=== PATIENT | female | born 1985 | race Two or more races ===

== ENCOUNTER → 2016-09-02 | Outpatient (CLI) | payer OTHER | LOC: RAD 14:08 | PROVIDERS: ATTEND Orthopaedic Surgery | DX: M25.561 Pain in right knee (principal); M25.461 Effusion, right knee ==

== ENCOUNTER 2016-09-27 21:19 | Day surgery (SDC) | payer OTHER ==
[2016-09-27 21:58] LABS: ABSOLUTE BASOPHILS # (AUTO) 0.1 10^3/uL (0.0-0.2); ABSOLUTE EOSINOPHILS # (AUTO) 0.2 10^3/uL (0.0-0.6); ABSOLUTE LYMPHOCYTES (AUTO) 4.3 10^3/uL (0.5-4.7); ABSOLUTE NEUT (AUTO) 11.3 10^3/uL (1.7-8.2); BASOPHILS % (AUTO) 0.8 % (0-2); EOSINOPHILS % (AUTO) 1.4 % (0-6); LYMPHOCYTES % (AUTO) 25.5 % (13-45); MEAN CORPUSCULAR HEMOGLOBIN 31.6 pg (27.0-33.4); MEAN CORPUSCULAR HGB CONC 34.1 g/dL (32.0-36.0); MEAN CORPUSCULAR VOLUME 93 fl (80-97); MONOCYTES % (AUTO) 5.8 % (3-13); RED BLOOD COUNT 4.43 10^6/uL (3.72-5.28); RED CELL DISTRIBUTION WIDTH 13.6 % (11.5-14.0); SEGMENTED NEUTROPHILS % (AUTO) 66.5 % (42-78)
[2016-09-27 22:07] LABS: APPEARANCE,URINE CLEAR; BILIRUBIN,URINE NEGATIVE (NEGATIVE); GLUCOSE, URINE NEGATIVE (NEGATIVE); KETONES,URINE NEGATIVE (NEGATIVE); LEUKOCYTE ESTERASE,URINE NEGATIVE (NEGATIVE); NITRITE,URINE NEGATIVE (NEGATIVE); PROTEIN,URINE NEGATIVE (NEGATIVE); URINE SPECIFIC GRAVITY 1.015; UROBILINOGEN,URINE NEGATIVE mg/dL (<2.0)
[2016-09-27 22:49] LABS: ALANINE AMINOTRANSFERASE 25 U/L (9-52); ALKALINE PHOSPHATASE 89 U/L (38-126); ANION GAP 11 (5-19); ASPARTATE AMINO TRANSFERASE 21 U/L (14-36); BILIRUBIN,DIRECT 0.3 mg/dL (0.0-0.4); BILIRUBIN,TOTAL 0.6 mg/dL (0.2-1.3); BLOOD UREA NITROGEN 11 mg/dL (7-20); CALCIUM 9.7 mg/dL (8.4-10.2); CARBON DIOXIDE 25 mmol/L (22-30); CHLORIDE 106 mmol/L (98-107); CREATININE RESULT 0.82 mg/dL (0.52-1.25); GLUCOSE 90 mg/dL (75-110); LIPASE 35.4 U/L (23-300); POTASSIUM 4.4 mmol/L (3.6-5.0); SODIUM 142.2 mmol/L (137-145)
[2016-09-28] MEDS ORDERED: ONDANSETRON HCL INJ/PF 4 MG/2 ML SDV IV ONE (00:06)
[2016-09-28] MEDS ORDERED: FENTANYL CITRATE INJ/PF 100 MCG/2 ML AMPUL IV ONE (00:06)
--- NOTE | 2016-09-28 00:09 | ER Document Report ---
ED General - General Chief Complaint: Abdominal Pain Stated Complaint: STOMACH PAIN Notes: Patient is a 31-year-old female presents for complaint of right lower quadrant pain. Pain initially started periumbilically and then radiated around to the right lower quadrant. Patient's never had this pain before. She does have history of IBS for says this feels completely different. She's had some nausea. No vomiting. No diarrhea. No blood in her stool. No fevers. Pain started yesterday. She does have a previous history of cholecystectomy. She is currently sexually monogamous. She does not have concerns for sexually transmitted diseases. She's had no abnormal vaginal discharge or bleeding. No dysuria. TRAVEL OUTSIDE OF THE [place] IN LAST 30 DAYS: No - Related Data Allergies/Adverse Reactions: Coconut * [Coconut] Allergy (Verified 09/24/14 09:09) Hives morphine [Morphine] Adverse Reaction (Intermediate, Verified 09/24/14 09:09) NIGHTMARES; N/V Shellfish * [Shellfish] Adverse Reaction (Intermediate, Verified 09/24/14 09:09) BURNING SKIN SENSATION; RED SKIN SILK TAPE Allergy (Intermediate, Uncoded 09/24/14 09:09) Past Medical History - Social History Smoking Status: Unknown if Ever Smoked Frequency of alcohol use: None Drug Abuse: None Family History: Reviewed & Not Pertinent, CAD Patient has suicidal ideation: No Patient has homicidal ideation: No - Past Medical History Cardiac Medical History: 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 Denies: Hx Cerebrovascular Accident Renal/ Medical History: Denies: Hx Peritoneal Dialysis GI Medical History: Reports: Hx Gastroesophageal Reflux Disease. Denies: Hx Hepatitis, Hx Hiatal Hernia, Hx Ulcer Musculoskeltal Medical History: Denies Hx Arthritis Psychiatric Medical History: Denies: Hx Depression Infectious Medical History: Denies: Hx Hepatitis Past Surgical History: Reports: Hx Cholecystectomy, Hx Gynecologic Surgery, Hx Oral Surgery, Hx Orthopedic Surgery, Hx Tonsillectomy. Denies: Hx Open Heart Surgery, Hx Pacemaker - Immunizations Immunizations up to date: Yes Hx Diphtheria, Pertussis, Tetanus Vaccination: No Review of Systems - Review of Systems Notes: My Normal Review Basic REVIEW OF SYSTEMS: CONSTITUTIONAL : Denies fever, chills, or sweats. Denies recent illness. EENT: Denies eye, ear, throat, or mouth pain or symptoms. Denies nasal or sinus congestion. RESPIRATORY: Denies cough, cold, or chest congestion. Denies shortness of breath, difficulty breathing, or wheezing. GASTROINTESTINAL: Right lower quadrant abdominal pain. Denies nausea, vomiting , or diarrhea. Denies constipation. Last BM: GENITOURINARY: Denies difficulty urinating, painful urination, burning, frequency, or blood in urine. FEMALE GENITOURINARY: Denies vaginal bleeding, abnormal or irregular periods. MUSCULOSKELETAL: Denies neck or back pain or joint pain or swelling. SKIN: Denies rash or skin lesions. NEUROLOGICAL: Denies altered mental status or loss of consciousness. Denies headache. Denies weakness or paralysis or loss of use of either side. Denies problems with gait or speech. Denies sensory or motor loss. ALL OTHER SYSTEMS REVIEWED AND NEGATIVE. Physical Exam - Vital signs Vitals: Temp Pulse Resp BP Pulse Ox 98.5 F 108 H 18 146/84 H 99 09/27/16 21:36 09/27/16 21:36 09/27/16 21:36 09/27/16 21:36 09/27/16 21:36 - Notes Notes: General Appearance: Well nourished, alert, cooperative, no acute distress, mild obvious discomfort. Vitals: reviewed, See vital signs table. Head: no swelling or tenderness to the head Eyes: PERRL, EOMI, Conjuctiva clear Mouth: No decreasd moisture Lungs: No wheezing, No rales, No rhonci, No accessory muscle use, good air exchange bilaterally. Heart: Normal rate, Regular rythm, No murmur, no rub Abdomen: Normal BS, soft, No rigidity, moderate right lower quadrant abdominal tenderness to palpation, No guarding, no rebound, no abdominal masses, no organomegaly Extremities: strength 5/5 in all extremities, good pulses in all extremities, no swelling or tenderness in the extremities, no edema. Skin: warm, dry, appropriate color, no rash Neuro: speech clear, oriented x 3, normal affect, responds appropriately to questions. Course - Vital Signs Vital signs: Temp Pulse Resp BP Pulse Ox 98.5 F 108 H 18 146/84 H 99 09/27/16 21:36 09/27/16 21:36 09/27/16 21:36 09/27/16 21:36 09/27/16 21:36 - Laboratory Result Diagrams: 09/27/16 21:45 09/27/16 22:28 Laboratory results interpreted by me: 09/27/16 21:45 WBC 17.0 H Absolute Neutrophils 11.3 H - Transfer of Care Notes: 09/28/16 01:24 CT scan shows evidence of appendicitis which correlates with clinical exam. Patient will be admitted for further intervention treatment. I did discuss the case with the general surgeon on-call, Dr. Li, agrees with the patient. He requested the patient Zosyn and keep her nothing by mouth. I discussed the plan with the patient and she is agreeable to it. Dictation of this chart was performed using voice recognition software; therefore, there may be some unintended grammatical errors. Discharge - Discharge Clinical Impression: Appendicitis Qualifiers: Appendicitis type: acute appendicitis Acute appendicitis type: with localized peritonitis Qualified Code(s): K35.3 - Acute appendicitis with localized peritonitis Condition: Stable Disposition: ADMITTED INPATIENT Admitting Provider: Surgicalist Unit Admitted: OR
[2016-09-28] MEDS ORDERED: PIPERACILLIN/TAZOBACTAM 3.375 GM VIAL IV ONE (01:21)
[2016-09-28] MEDS ORDERED: NORMAL SALINE 1000 ML 1,000 ML IV ONE (01:25)
[2016-09-28] MEDS ORDERED: HYDROMORPHONE HCL INJ/PF 2 MG/ML AMPULE IV PRN (03:44)
--- NOTE | 2016-09-28 07:43 | HISTORY AND PHYSICAL E ---
History and Physical NAME: CURT RAYO : 1985 AGE: 31Y ADMITTED: 09/28/2016 ROOM: 205 CHIEF COMPLAINT: Abdominal pains. HISTORY OF PRESENT ILLNESS: This is a 31-year-old female complaining of vague abdominal pains 2 days ago. Yesterday, pains worsened and more localized in the right lower quadrant. She came to the emergency room last night where a CAT scan of the abdomen revealed early acute appendicitis. Her white count is up to 17,000. PAST HISTORY: 1. History of laparoscopic cholecystectomy. 2. Right foot bunionectomy. 3. Tonsillectomy. FAMILY HISTORY: Strong for diabetes mellitus mother's side. REVIEW OF SYSTEMS: Abdominal pains with nausea. Denies any diarrhea or constipation or dysuria. No cough. No chest pains. She has a history of migraine and occasionally takes ibuprofen. Rest of the systems unremarkable. ALLERGIES: MORPHINE. PHYSICAL EXAMINATION: GENERAL: Well-developed, obese 31-year-old female alert and oriented, complaining of right lower quadrant pains. NECK: Supple. No thyromegaly. LUNGS: Clear. HEART: Regular sinus rhythm. ABDOMEN: Soft with tenderness in the right lower quadrant with rebound. EXTREMITIES: No edema. IMPRESSION: Acute appendicitis. PLAN: Patient started on IV antibiotics for laparoscopic appendectomy today, possible open. DICTATING PHYSICIAN: SAHIL MONTANEZ M.D. [id number] PHY#: [id number] ID: [id number] JOB#: [id number] ACCT: [id number] cc:SAHIL MONTANEZ M.D. >
--- NOTE | 2016-09-28 08:00 | PDOC PROGRESS REPORT ---
Subjective Progress Note for:: 09/28/16 Subjective:: Right lower quadrant abdominal pain. Physical Exam Vital Signs: Temp Pulse Resp BP Pulse Ox 97.4 F 79 17 116/61 99 09/28/16 04:09 09/28/16 04:09 09/28/16 04:09 09/28/16 04:09 09/28/16 04:09 General appearance: PRESENT: no acute distress, cooperative Respiratory exam: PRESENT: clear to auscultation navin Cardiovascular exam: PRESENT: RRR GI/Abdominal exam: PRESENT: other - Soft, nondistended, obese, tenderness to palpation in the right lower quadrant with guarding Results Impressions: Abdomen/Pelvis CT 09/28/16 00:06 IMPRESSION: Early acute appendicitis. Assessment & Plan - Diagnosis (1) Appendicitis Qualifiers: Appendicitis type: acute appendicitis Acute appendicitis type: with localized peritonitis Qualified Code(s): K35.3 - Acute appendicitis with localized peritonitis Is this a current diagnosis for this admission?: YesPlan: Most likely appendicitis. Plan laparoscopic appendectomy possible open appendectomy. I have discussed with the patient the risk and benefits of the surgery including risk of infection, bleeding, adjacent structure injury, mistaken diagnosis and stump leak. Patient understands and agrees to proceed.
[2016-09-28] MEDS ORDERED: BUPIVACAINE HCL 0.25 % INJ/PF (2.5 MG/1 ML) 30 ML VIAL ONE ×2 (08:22→08:56)
[2016-09-28] MEDS ORDERED: IBUPROFEN INJ 800 MG/8 ML VIAL IV ONE (09:02)
[2016-09-28] MEDS ORDERED: HYDROMORPHONE HCL INJ/PF 2 MG/ML AMPULE ONE (09:02)
[2016-09-28] MEDS ORDERED: ACETAMINOPHEN 100 ML IV ONE (09:02)
[2016-09-28] MEDS ORDERED: PROPOFOL INJ 200 MG/20 ML VIAL IV ONE (09:02)
[2016-09-28] MEDS ORDERED: EPHEDRINE SULFATE INJ 50 MG/1 ML AMPULE ONE (09:02)
[2016-09-28] MEDS ORDERED: MIDAZOLAM 2 MG/2 ML INJ ONE (09:02)
[2016-09-28] MEDS ORDERED: PROMETHAZINE HCL INJ 25 MG/1 ML VIAL IV PRN (10:10)
[2016-09-28] MEDS ORDERED: ONDANSETRON HCL INJ/PF 4 MG/2 ML SDV IV PRN ×2 (10:10→11:01)
[2016-09-28] MEDS ORDERED: DIPHENHYDRAMINE HCL 50 MG/ML VIAL IV PRN (10:10)
[2016-09-28] MEDS: HYDROMORPHONE HCL INJ/PF 2 MG/ML AMPULE IV PRN ×2 (12:49→19:30)
[2016-09-28] MEDS ORDERED: METOCLOPRAMIDE HCL INJ/PF 10 MG/2 ML SDV ONE (14:39)
[2016-09-28] MEDS ORDERED: ROCURONIUM BROMIDE INJ 50 MG/5 ML VIAL IV ONE (14:39)
[2016-09-28] MEDS ORDERED: NEOSTIGMINE METHYLSULFATE 10 MG/10 ML VIAL ONE (14:39)
[2016-09-28] MEDS ORDERED: LIDOCAINE 2% INJ-PF (20 MG/ML) 10 ML AMPUL ONE (14:39)
[2016-09-28] MEDS ORDERED: SUCCINYLCHOLINE CHLORIDE INJ 200 MG/10 ML VIAL ONE (14:39)
[2016-09-28] MEDS ORDERED: ONDANSETRON HCL INJ/PF 4 MG/2 ML SDV ONE (14:39)
[2016-09-28] MEDS ORDERED: DEXAMETHASONE SOD PHOSPHATE INJ 4 MG/1 ML VIAL ONE (14:39)
[2016-09-28] MEDS ORDERED: GLYCOPYRROLATE INJ 0.4 MG/2 ML VIAL ONE (14:39)
--- NOTE | 2016-09-28 17:53 | PDOC PROGRESS REPORT ---
Subjective Progress Note for:: 09/28/16 Subjective:: Abdominal pain much improved from preoperative state. Physical Exam Vital Signs: Temp Pulse Resp BP Pulse Ox 98.0 F 85 18 122/68 96 09/28/16 16:50 09/28/16 16:50 09/28/16 16:50 09/28/16 16:50 09/28/16 16:50 Intake & Output 09/27/16 09/28/16 09/29/16 06:59 06:59 06:59 Intake Total 2200 Output Total 370 Balance 1830 Weight 129.2 kg General appearance: PRESENT: no acute distress, cooperative Respiratory exam: PRESENT: clear to auscultation navin Cardiovascular exam: PRESENT: RRR GI/Abdominal exam: PRESENT: other - Soft, nondistended, tenderness to palpation the right lower quadrant but much less then prior to her operation. Results Impressions: Abdomen/Pelvis CT 09/28/16 00:06 IMPRESSION: Early acute appendicitis. Assessment & Plan - Diagnosis (1) Appendicitis Qualifiers: Appendicitis type: acute appendicitis Acute appendicitis type: with localized peritonitis Qualified Code(s): K35.3 - Acute appendicitis with localized peritonitis Is this a current diagnosis for this admission?: YesPlan: Status post laparoscopic appendectomy. Patient looks good. We'll likely discharge patient home tomorrow.
--- NOTE | 2016-09-28 17:53 | Operative Report ---
Operative Report DATE OF SURGERY: 09/28/16 PREOPERATIVE DIAGNOSIS: Appendicitis POSTOPERATIVE DIAGNOSIS: Appendicitis OPERATION: Laparoscopic appendectomy SURGEON: GETACHEW HRE ANESTHESIA: GA TISSUE REMOVED OR ALTERED: Appendix COMPLICATIONS: None ESTIMATED BLOOD LOSS: minimal INTRAOPERATIVE FINDINGS: Tip of appendix appeared inflamed with thickened mesentery. PROCEDURE: Informed consent was obtained. Patient was brought to the operating room and placed on the operating room table in supine position. After satisfactory induction of general anesthesia patient's abdomen was prepped and draped in usual sterile fashion. A supraumbilical midline incision was made dissection carried out through the fascia and the peritoneal cavity was entered. Ervin trocar was placed and pneumoperitoneum produced with good patient toleration. 5 mm trocar was placed in the right lateral abdomen lateral to the rectus above the level of the umbilicus. Another 5 mm trocar was placed in the left lateral abdomen lateral to the rectus below the level of the umbilicus. The patient was placed in a Trendelenburg position with the right side up. The appendix was visualized the tip appeared inflamed with thickened mesentery consistent with early appendicitis. A plane was created between the appendix and the mesoappendix at the base of the appendix. The appendix was taken using an Endo AKASH stapling device flush with the cecum. The stump closure appeared secure. The mesoappendix was taken using a vascular load of the Endo AKSAH stapling device. There was a bleeding at the staple line requiring surgical clip placement to control the bleeding. The operative field was irrigated and irrigant aspirated out. Irrigation fluid was perfectly clear at the end of the case. Hemostasis appeared excellent at the end of the case. The appendix was placed in an Endobag and removed through the Ervin trocar site fascial defect. All trochars were removed under the direct vision of the laparoscope to ensure hemostasis. The Ervin trocar site fascial defect was closed with interrupted Vicryl sutures. Marcaine was injected at the operative sites. All skin incisions were closed with interrupted subcuticular Monocryl sutures. Patient tolerated procedure well with no apparent complications and was taken to the recovery area in stable condition.
[2016-09-28] MEDS: PIPERACILLIN SODIUM/TAZOBACTAM 3.375 GM in NORMAL SALINE 100 ML IV SCH (18:27)
[2016-09-28] MEDS: NORMAL SALINE 1000 ML 1,000 ML IV PRN (18:31)
[2016-09-29] MEDS: PIPERACILLIN SODIUM/TAZOBACTAM 3.375 GM in NORMAL SALINE 100 ML IV SCH ×2 (02:33→09:38)
[2016-09-29] MEDS: NORMAL SALINE 1000 ML 1,000 ML IV PRN (02:34)
[2016-09-29] MEDS: OXYCODONE-ACETAMINOPHEN 5-325 MG TABLET PO PRN ×2 (02:34→08:08)
[2016-09-29 13:16] VITALS: BP 112/61
--- NOTE | 2016-09-29 14:13 | DISCHARGE SUMMARY E ---
Discharge Summary NAME: CURT RAYO : 1985 AGE: 31Y ADMITTED: 09/28/2016 DISCHARGED: 09/29/2016 FINAL DIAGNOSIS: Acute appendicitis. PROCEDURE PERFORMED: Laparoscopic appendectomy by Dr. Zhou, 09/28/16. SUMMARY: This is a 31-year-old female who was admitted for acute appendicitis. Laparoscopic appendectomy was done by Dr. Zhou on the day of admission, 09/28/16. Today, 09/29/16, the patient is able to tolerate a soft diet and the pains are controlled by Percocet. She is advised to continue regular diet and avoid any heavy lifting more than 15 pounds for the next 2 weeks and may resume regular activity in 3 weeks. Follow up with Dr. Zhou in the Surgical [facility] in a week or two. A prescription for Percocet was given to the patient. She may shower starting today if she wants to. All the incisions look good. DICTATING PHYSICIAN: SAHIL MONTANEZ M.D. [id number] PHY#: [id number] ID: [id number] JOB#: [id number] ACCT: [id number] cc:SAHIL MONTANEZ M.D. >
== END 2016-09-29 13:35 | disposition home or self-care (01) ==
LOC: ER 21:19 → UNDOADMIN 09-28 01:32 → EH 09-28 01:32 → 2N 09-28 03:02 → OROUT 09-28 03:25 → EH 09-28 03:25 → 2N 09-28 03:25 → UNDOADMIN 09-28 03:25 → UNDODISIN 09-29 13:35 → OROUT 09-29 13:35
PROVIDERS: ATTEND Surgery
PROC: 0DTJ4ZZ Resection of Appendix, Percutaneous Endoscopic Approach (ICD-10-PCS; principal; 2016-09-28 09:00)
DX: K35.3 Acute appendicitis with localized peritonitis (principal); F17.210 Nicotine dependence, cigarettes, uncomplicated; E66.9 Obesity, unspecified; Z88.5 Allergy status to narcotic agent; Z68.42 Body mass index [BMI] 45.0-49.9, adult; Z79.899 Other long term (current) drug therapy
CPT/HCPCS: 99285; 96374; 96375; 36415; 83690; 85025; 81025; 80053; 81001; 88304 ×2; 74176; 44970; J2250; J3490 ×3; J1100; J3010; J2765; J1170; J0330; J2405; J7030 ×2; J2704; J2543 ×2; J0131; J1741; 840

== ENCOUNTER 2017-03-22 18:35 | Emergency (ER) | payer OTHER ==
--- NOTE | 2017-03-22 20:13 | ER Document Report ---
ED General - General Chief Complaint: Shortness Of Breath Stated Complaint: SHORTNESS OF BREATH Time Seen by Provider: 03/22/17 19:12 TRAVEL OUTSIDE OF THE [place] IN LAST 30 DAYS: No - HPI Patient complains to provider of: Shortness of breath chest wall pain Notes: Patient coming in for shortness of breath chest wall pain. Patient states hard to take a deep breath and due to pain substernal goes underneath her ribs bilaterally. Denies any fevers chills productive cough nausea vomiting. Denies any recent travel patient denies any hormone replacement control patient states stop smoking approximately 1 month ago. Patient denies distress upon my evaluation states hurts when she bends over as well. States multiple sick contacts with upper respiratory-like symptoms cough runny nose. - Related Data Allergies/Adverse Reactions: Coconut * [Coconut] Allergy (Verified 03/22/17 18:53) Hives morphine [Morphine] Adverse Reaction (Intermediate, Verified 03/22/17 18:53) NIGHTMARES; N/V Shellfish * [Shellfish] Adverse Reaction (Intermediate, Verified 03/22/17 18:53) BURNING SKIN SENSATION; RED SKIN SILK TAPE Allergy (Intermediate, Uncoded 09/28/16 03:32) Past Medical History - Social History Smoking Status: Former Smoker Chew tobacco use (# tins/day): No Frequency of alcohol use: None Drug Abuse: None Family History: Reviewed & Not Pertinent, CAD - Past Medical History Cardiac Medical History: 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 Denies: Hx Cerebrovascular Accident Renal/ Medical History: Denies: Hx Peritoneal Dialysis GI Medical History: Reports: Hx Gastroesophageal Reflux Disease. Denies: Hx Hepatitis, Hx Hiatal Hernia, Hx Ulcer Musculoskeltal Medical History: Denies Hx Arthritis Psychiatric Medical History: Denies: Hx Depression Infectious Medical History: Denies: Hx Hepatitis Past Surgical History: Reports: Hx Cholecystectomy, Hx Gynecologic Surgery, Hx Oral Surgery, Hx Orthopedic Surgery, Hx Tonsillectomy. Denies: Hx Open Heart Surgery, Hx Pacemaker - Immunizations Immunizations up to date: Yes Hx Diphtheria, Pertussis, Tetanus Vaccination: No Review of Systems - Review of Systems Constitutional: No symptoms reported EENT: No symptoms reported Cardiovascular: Chest pain - Chest wall pain Respiratory: Short of breath Gastrointestinal: No symptoms reported Genitourinary: No symptoms reported Female Genitourinary: No symptoms reported Musculoskeletal: No symptoms reported Skin: No symptoms reported Hematologic/Lymphatic: No symptoms reported Neurological/Psychological: No symptoms reported -: Yes All other systems reviewed and negative Physical Exam - Vital signs Vitals: Temp Pulse Resp BP Pulse Ox 98.8 F 100 18 142/88 H 97 03/22/17 18:52 03/22/17 18:52 03/22/17 18:52 03/22/17 18:52 03/22/17 18:52 Interpretation: Normal - General General appearance: Appears well, Alert - HEENT Head: Normocephalic, Atraumatic Eyes: Normal Pupils: PERRL - Respiratory Respiratory status: No respiratory distress Chest status: Tender - Palpation to the substernal region in the lower part of the chest wall reproduces patient's symptoms. Breath sounds: Normal Chest palpation: Normal - Cardiovascular Rhythm: Regular Heart sounds: Normal auscultation Murmur: No - Abdominal Inspection: Normal Distension: No distension Bowel sounds: Normal Tenderness: Nontender Organomegaly: No organomegaly - Back Back: Normal, Nontender - Extremities General upper extremity: Normal inspection, Nontender, Normal color, Normal ROM , Normal temperature General lower extremity: Normal inspection, Nontender, Normal color, Normal ROM , Normal temperature, Normal weight bearing. No: Pravin's sign - Neurological Neuro grossly intact: Yes Cognition: Normal Orientation: AAOx4 [place] Coma Scale Eye Opening: Spontaneous [place] Coma Scale Verbal: Oriented [place] Coma Scale Motor: Obeys Commands [place] Coma Scale Total: 15 Speech: Normal Motor strength normal: LUE, RUE, LLE, RLE Sensory: Normal - Psychological Associated symptoms: Normal affect, Normal mood - Skin Skin Temperature: Warm Skin Moisture: Dry Skin Color: Normal Course - Re-evaluation Re-evalutation: 03/22/17 20:08 Call lab at this time states blood has been received and collected 03/22/17 20:34 Lab work still pending at this time. More likely chest wall pain. Lab work negative more likely will discharge home with anti-inflammatory medication - Vital Signs Vital signs: Temp Pulse Resp BP Pulse Ox 98.8 F 73 20 134/86 H 100 03/22/17 20:50 03/22/17 20:50 03/22/17 20:50 03/22/17 20:50 03/22/17 20:50 - Laboratory Result Diagrams: 03/22/17 19:53 03/22/17 19:53 Laboratory results interpreted by me: 03/22/17 03/22/17 19:53 19:53 WBC 11.9 H Creatine Kinase 188 H Discharge - Discharge Clinical Impression: Costochondritis Condition: Good Instructions: Anti-Inflammatory Medication ([facility]), Chest Wall Pain ([facility]) Additional Instructions: Take medications as prescribed. Return to ER symptoms worsen. Please avoid smoking. May take Tylenol as well Prescriptions: Ketorolac Tromethamine [Toradol 10 mg Tablet] 10 mg PO Q8HP PRN #30 tablet PRN Reason: Prednisone [Deltasone 20 mg Tablet] 2 tab PO DAILY 5 Days tablet Forms: Return to Work
[2017-03-22 20:19] LABS: ABSOLUTE BASOPHILS # (AUTO) 0.1 10^3/uL (0.0-0.2); ABSOLUTE EOSINOPHILS # (AUTO) 0.3 10^3/uL (0.0-0.6); ABSOLUTE MONOCYTES (AUTO) 0.9 10^3/uL (0.1-1.4); ABSOLUTE NEUT (AUTO) 6.6 10^3/uL (1.7-8.2); BASOPHILS % (AUTO) 0.5 % (0-2); EOSINOPHILS % (AUTO) 2.2 % (0-6); HEMATOCRIT 41.5 % (36.0-47.0); HEMOGLOBIN 14.3 g/dL (12.0-15.5); HGB HCT DIFFERENCE 1.4; LYMPHOCYTES % (AUTO) 33.9 % (13-45); MEAN CORPUSCULAR HEMOGLOBIN 32.1 pg (27.0-33.4); MEAN CORPUSCULAR HGB CONC 34.4 g/dL (32.0-36.0); MEAN CORPUSCULAR VOLUME 93 fl (80-97); MONOCYTES % (AUTO) 7.9 % (3-13); RED BLOOD COUNT 4.44 10^6/uL (3.72-5.28); RED CELL DISTRIBUTION WIDTH 13.4 % (11.5-14.0); SEGMENTED NEUTROPHILS % (AUTO) 55.5 % (42-78); WHITE BLOOD COUNT 11.9 10^3/uL (4.0-10.5)
--- NOTE | 2017-03-22 20:22 | EKG REPORT ---
SEVERITY:- NORMAL ECG - SINUS RHYTHM : Confirmed by: Monica Le MD 22-Mar-2017 20:22:25
--- NOTE | 2017-03-22 20:26 | RADIOLOGY REPORT (SQ) ---
EXAM DESCRIPTION: CHEST PA/LAT COMPLETED DATE/TIME: 03/22/2017 8:07 pm REASON FOR STUDY: cp COMPARISON: 03/04/2016. EXAM PARAMETERS: NUMBER OF VIEWS: two views TECHNIQUE: Digital Frontal and Lateral radiographic views of the chest acquired. RADIATION DOSE: NA LIMITATIONS: none FINDINGS: LUNGS AND PLEURA: No opacities, masses or pneumothorax. No pleural effusion. MEDIASTINUM AND HILAR STRUCTURES: No masses or contour abnormalities. HEART AND VASCULAR STRUCTURES: Heart normal size. No evidence for failure. BONES: No acute findings. HARDWARE: None in the chest. OTHER: No other significant finding. IMPRESSION: NO SIGNIFICANT RADIOGRAPHIC FINDING IN THE CHEST. TECHNICAL DOCUMENTATION: JOB ID: [id number] [employer]- All Rights Reserved
[2017-03-22 20:39] LABS: ALANINE AMINOTRANSFERASE 34 U/L (9-52); ALBUMIN 4.2 g/dL (3.5-5.0); ALKALINE PHOSPHATASE 90 U/L (38-126); ANION GAP 12 (5-19); ASPARTATE AMINO TRANSFERASE 27 U/L (14-36); BILIRUBIN,DIRECT 0.3 mg/dL (0.0-0.4); BILIRUBIN,TOTAL 0.4 mg/dL (0.2-1.3); BLOOD UREA NITROGEN 12 mg/dL (7-20); CALCIUM 9.6 mg/dL (8.4-10.2); CARBON DIOXIDE 25 mmol/L (22-30); CHLORIDE 104 mmol/L (98-107); CREATINE KINASE 188 U/L (30-135); GLUCOSE 86 mg/dL (75-110); POTASSIUM 4.9 mmol/L (3.6-5.0); SODIUM 141.1 mmol/L (137-145)
[2017-03-22 20:51] LABS: CREATINE KINASE MB 0.57 ng/mL (<4.55)
[2017-03-22 20:52] LABS: TROPONIN I < 0.012 ng/mL
[2017-03-22 20:55] VITALS: BP 134/86
[2017-03-22] MEDS ORDERED: KETOROLAC TROMETHAMINE 10 MG TABLET PO ONE (20:56)
== END 2017-03-22 21:17 | disposition home or self-care (01) ==
LOC: ER 18:35
DX: M94.0 Chondrocostal junction syndrome [Tietze] (principal); R06.02 Shortness of breath; I10 Essential (primary) hypertension; Z88.6 Allergy status to analgesic agent; Z91.013 Allergy to seafood; Z87.891 Personal history of nicotine dependence; Z90.49 Acquired absence of other specified parts of digestive tract
CPT/HCPCS: 93005; 99285; 36415; 82553; 82550; 85025; 80053; 84484; 71020; 93010; J3490

== ENCOUNTER 2017-07-18 10:10 | Emergency (ER) | payer OTHER ==
[2017-07-18 10:19] VITALS: BP 148/97
[2017-07-18] MEDS ORDERED: LIDOCAINE 2% VISCOUS SOLN 20 ML UDCUP PO ONE (10:47)
[2017-07-18] MEDS ORDERED: CIPROFLOXACIN-HC OTIC SUSP 10 ML AS ONE (10:47)
--- NOTE | 2017-07-18 10:54 | ER Document Report ---
ED ENT - General Chief Complaint: Ear Pain Stated Complaint: EAR PAIN Time Seen by Provider: 07/18/17 10:32 Mode of Arrival: Ambulatory Information source: Patient Notes: 31-year-old female presents to ED for complaint of left ear pain with drainage since Sunday. States she woke up Sunday with ear pain to the left ear Sunday it was worse with a headache to state the headache was more and she started having some yellow drainage with blood. Today she states there is more pain and blood. Examining patient there is a cut to the outer ear canal as of something has been placed in her ear. Patient denies putting anything in her ear. TRAVEL OUTSIDE OF THE [place] IN LAST 30 DAYS: No - HPI Patient complains to provider of: Ear problem, Other - Headache Onset: Other - Sunday Onset/Duration: Gradual, Worse Quality of pain: Sharp Severity: Moderate Pain Level: 4 Location of pain: Ears - Left Associated symptoms: Ear pain - Left, Ear drainage - Yellow and blood Similar symptoms previously: No Recently seen / treated by doctor: No - Related Data Allergies/Adverse Reactions: Coconut * [Coconut] Allergy (Verified 07/18/17 10:11) Hives morphine [Morphine] Adverse Reaction (Intermediate, Verified 07/18/17 10:11) NIGHTMARES; N/V Shellfish * [Shellfish] Adverse Reaction (Intermediate, Verified 07/18/17 10:11) BURNING SKIN SENSATION; RED SKIN SILK TAPE Allergy (Intermediate, Uncoded 09/28/16 03:32) Past Medical History - General Information source: Patient - Social History Smoking Status: Current Every Day Smoker Cigarette use (# per day): Yes - 3 cigarettes a day Chew tobacco use (# tins/day): No Smoking Education Provided: Yes - 4 minutes Frequency of alcohol use: None Drug Abuse: None Occupation: [employer] Lives with: Spouse/Significant other Family History: Arthritis, CAD, DM, Hyperlipidemia, Hypertension, Thyroid Disfunction. denies: COPD, CVA, Malignancy Patient has suicidal ideation: No Patient has homicidal ideation: No - Past Medical History Cardiac Medical History: Reports: Hx Hypercholesterolemia, Hx Hypertension - intra cranial Pulmonary Medical History: Reports: None EENT Medical History: Reports: None Neurological Medical History: Reports: Hx Seizures Endocrine Medical History: Reports: None Renal/ Medical History: Reports: None Malignancy Medical History: Reports: None GI Medical History: Reports: Hx Gastroesophageal Reflux Disease Musculoskeltal Medical History: Reports Hx Musculoskeletal Deformity Skin Medical History: Reports None Psychiatric Medical History: Reports: None Traumatic Medical History: Reports: None Infectious Medical History: Reports: None Past Surgical History: Reports: Hx Adenoidectomy, Hx Cholecystectomy, Hx Gynecologic Surgery, Hx Oral Surgery - [place] teeth, Hx Orthopedic Surgery - Bunion to foot and nerve removal, Hx Tonsillectomy - Immunizations Immunizations up to date: Yes Hx Diphtheria, Pertussis, Tetanus Vaccination: No Review of Systems - Review of Systems Constitutional: No symptoms reported EENT: Ear pain - Left ear pain drainage of yellow and blood, Ear discharge Cardiovascular: No symptoms reported Respiratory: No symptoms reported Gastrointestinal: No symptoms reported Genitourinary: No symptoms reported Female Genitourinary: No symptoms reported Musculoskeletal: No symptoms reported Skin: No symptoms reported Hematologic/Lymphatic: No symptoms reported Neurological/Psychological: No symptoms reported -: Yes All other systems reviewed and negative Physical Exam - Vital signs Vitals: Temp Pulse Resp BP Pulse Ox 98.7 F 101 H 16 148/97 H 97 07/18/17 10:18 07/18/17 10:18 07/18/17 10:18 07/18/17 10:18 07/18/17 10:18 Interpretation: Normal - General General appearance: Appears well, Alert - HEENT Head: Normocephalic, Atraumatic Eyes: Normal Pupils: PERRL Ears: Normal External canal: Other - Scratch to the outer canal with blood minimal drainage minimal wax Tympanic membrane: Normal Sinus: Normal Nasal: Normal Mouth/Lips: Normal Mucous membranes: Normal Pharynx: Normal Neck: Normal - Respiratory Respiratory status: No respiratory distress Chest status: Nontender Breath sounds: Normal Chest palpation: Normal - Cardiovascular Rhythm: Regular Heart sounds: Normal auscultation Murmur: No - Abdominal Inspection: Normal Distension: No distension Bowel sounds: Normal Tenderness: Nontender Organomegaly: No organomegaly - Back Back: Normal, Nontender - Extremities General upper extremity: Normal inspection, Nontender, Normal color, Normal ROM , Normal temperature General lower extremity: Normal inspection, Nontender, Normal color, Normal ROM , Normal temperature, Normal weight bearing. No: Pravin's sign - Neurological Neuro grossly intact: Yes Cognition: Normal Orientation: AAOx4 Sk[place] Coma Scale Eye Opening: Spontaneous [place] Coma Scale Verbal: Oriented Golden Coma Scale Motor: Obeys Commands Skyler Coma Scale Total: 15 Speech: Normal Motor strength normal: LUE, RUE, LLE, RLE Sensory: Normal - Psychological Associated symptoms: Normal affect, Normal mood - Skin Skin Temperature: Warm Skin Moisture: Dry Skin Color: Normal Course - Re-evaluation Re-evalutation: 07/18/17 10:[address] Mayer for the blood in the ear after I cannot see any damage to the tympanic membrane. He states he cannot see anything but the cut on the outer canal also. Will treat with Cipro otic eardrops and viscous lidocaine into the ear for the pain and to prevent infection. Will discharge patient home to follow-up with her primary doctor. Patient was given instructions on discharge and how she is to treat herself and to follow-up with a primary doctor. Asked patient any other questions or concerns and she stated no. - Vital Signs Vital signs: Temp Pulse Resp BP Pulse Ox 98.7 F 101 H 16 148/97 H 97 07/18/17 10:18 07/18/17 10:18 07/18/17 10:18 07/18/17 10:18 07/18/17 10:18 Discharge - Discharge Clinical Impression: Laceration to the outer canal of the ear Otitis externa Qualifiers: Otitis externa type: unspecified type Chronicity: acute Laterality: left Qualified Code(s): H60.502 - Unspecified acute noninfective otitis externa, left ear Condition: Stable Disposition: HOME, SELF-CARE Instructions: Family Physicians / Practices Additional Instructions: OTITIS EXTERNA: You have otitis externa -- an infection of the outer ear canal. This can be very painful. It's sometimes called "swimmer's ear," because it often occurs after prolonged water exposure. Many things, such as earwax and dirt in the ear, can contribute to it. The usual treatment is antibiotic/antiinflammatory ear drops. Occasionally , a wick will be placed in the ear to draw in the medicine. If the infection is severe, an oral antibiotic may be prescribed. Pain medication is often needed. Avoid getting water in the ear. Outer ear infections often take longer to heal than you might expect. Some tenderness and ache in the ear may persist for about two weeks. See your physician if you fail to improve as expected. Call the doctor at once if you develop fever, increasing swelling (particularly if it makes your ear "poke out"), severe headache, stiff neck, or decreased hearing. USE OF EAR DROPS: Your ear drops won't do much good if they don't get all the way in. To help the ear drops penetrate all the way to the ear drum, use the following technique. If you encounter problems of any kind, notify the physician. (1) Lay your head sideways on a pillow. (2) Place the dropper tip just barely inside the ear canal, almost touching the bottom side of the canal. The liquid is tolerated better on the bottom of the canal. (3) Squeeze out the appropriate amount of medicine, and remove the dropper. (4) Grab the back of the ear (just behind the ear canal) between your index finger and thumb. (5) Tug up, then let the ear drop back. Repeat several times. This pumps the medicine down. (6) Wait five minutes, then place a cotton ball in the ear canal to catch and hold the medicine. CIPROFLOXACIN: You have been given an antibacterial agent, ciprofloxacin (Cipro). This medicine is not related to the penicillins, sulfas, cephalosporins, or tetracyclines. It is often given to patients who are allergic to these drugs. It has been chosen for you either because other drugs are not appropriate, or because of the nature of your problem. Cipro should not be taken with antacids, as these can decrease its effectiveness. It can be taken without regard to meals. CIPRO SHOULD NOT BE TAKEN BY CHILDREN, NURSING WOMEN, OR WOMEN. Although Cipro is usually well-tolerated, common side effects can include nausea and diarrhea. Contact your doctor if you experience any unusual symptoms while on this medication, such as joint pain or swelling, shortness of breath, wheezing, faintness, or hives. USE OF ACETAMINOPHEN (Tylenol): Acetaminophen may be taken for pain relief or fever control. It's much safer than aspirin, offering a wider range of "safe" dosages. It is safe during . Some brand names are Tylenol, Panadol, Datril, Anacin 3, Tempra, and Liquiprin. Acetaminophen can be repeated every four hours. The following are maximum recommended dosages: WEIGHT Dose Drops Elixir Chewable( 80mg) (LBS.) drprs=droppers tsp=teaspoon 6 40 mg 0.4 ml (1/2) 6-11 80 mg 0.8 ml (full) tsp 1 tab 12-16 120 mg 1 1/2 drprs 3/4 tsp 1 1/2 tabs 17-23 160 mg 2 drprs 1 tsp 2 tabs 24-30 240 mg 3 drprs 1 1/2 tsp 3 tabs 30-35 320 mg 2 tsp 4 tabs 36-41 360 mg 2 1/4 tsp 4 1/2 tabs 42-47 400 mg 2 1/2 tsp 5 tabs 48-53 480 mg 3 tsp 6 tabs 54-59 520 mg 3 1/4 tsp 6 1/2 tabs 60-64 560 mg 3 1/2 tsp 7 tabs 65-70 600 mg 3 3/4 tsp 7 1/2 tabs 71-76 640 mg 4 tsp 8 tabs 77-82 720 mg 4 1/2 tsp 9 tabs 83-88 800 mg 5 tsp 10 tabs >89 pounds or adults 650 mg to 900 mg Acetaminophen can be repeated every four hours. Maximum dose not to exceed 4000 mg a day. These maximum recommended dosages are slightly higher than the dosages written on the product container, but these dosages are very safe and below the toxic dosage for acetaminophen. FOLLOW-UP CARE: If you have been referred to a physician for follow-up care, call the physician s office for an appointment as you were instructed or within the next two days. If you experience worsening or a significant change in your symptoms, notify the physician immediately or return to the Emergency Department at any time for re-evaluation. Prescriptions: Ciprofloxacin HCl/Hc [Cipro HC Otic Suspension] 4 drop LFT_EAR BID #1 bottle Forms: Elevated Blood Pressure, Smoking Cessation Education, Return to Work Referrals: [facility] [Provider Group] - Follow up as needed
== END 2017-07-18 11:00 | disposition home or self-care (01) ==
LOC: ER 10:10
DX: S01.312A Laceration without foreign body of left ear, initial encounter (principal); H60.502 Unspecified acute noninfective otitis externa, left ear; X58.XXXA Exposure to other specified factors, initial encounter; F17.210 Nicotine dependence, cigarettes, uncomplicated; E78.00 Pure hypercholesterolemia, unspecified; I10 Essential (primary) hypertension; Z90.49 Acquired absence of other specified parts of digestive tract; Z88.6 Allergy status to analgesic agent; Z91.013 Allergy to seafood
CPT/HCPCS: 99282; J3490 ×2

== ENCOUNTER 2017-08-17 08:52 | Emergency (ER) | payer OTHER ==
--- NOTE | 2017-08-17 09:33 | ER Document Report ---
ED Respiratory Problem - General Chief Complaint: Cough Stated Complaint: COUGH Time Seen by Provider: 08/17/17 09:30 Mode of Arrival: Ambulatory Information source: Patient Notes: 32 yo female c/o cough, n/v and congestion x3 days. Post tussive cough today. Has fever, bodyaches. No chest pain or shortness of breath. TRAVEL OUTSIDE OF THE [place] IN LAST 30 DAYS: No - Related Data Allergies/Adverse Reactions: Coconut * [Coconut] Allergy (Verified 08/17/17 08:52) Hives morphine [Morphine] Adverse Reaction (Intermediate, Verified 08/17/17 08:52) NIGHTMARES; N/V Shellfish * [Shellfish] Adverse Reaction (Intermediate, Verified 08/17/17 08:52) BURNING SKIN SENSATION; RED SKIN SILK TAPE Allergy (Intermediate, Uncoded 08/17/17 08:52) Past Medical History - General Information source: Patient - Social History Smoking Status: Never Smoker Frequency of alcohol use: None Drug Abuse: None Lives with: Family Family History: Arthritis, CAD, DM, Hyperlipidemia, Hypertension, Thyroid Disfunction - Past Medical History Cardiac Medical History: Reports: Hx Hypercholesterolemia, Hx Hypertension - intra cranial Neurological Medical History: Reports: Hx Seizures Renal/ Medical History: Denies: Hx Peritoneal Dialysis GI Medical History: Reports: Hx Gastroesophageal Reflux Disease Musculoskeltal Medical History: Reports Hx Musculoskeletal Deformity Past Surgical History: Reports: Hx Adenoidectomy, Hx Cholecystectomy, Hx Gynecologic Surgery, Hx Oral Surgery - [place] teeth, Hx Orthopedic Surgery - Bunion to foot and nerve removal, Hx Tonsillectomy - Immunizations Immunizations up to date: Yes Hx Diphtheria, Pertussis, Tetanus Vaccination: No Review of Systems - Review of Systems Constitutional: See HPI EENT: See HPI Cardiovascular: No symptoms reported Respiratory: See HPI Gastrointestinal: No symptoms reported Genitourinary: No symptoms reported Female Genitourinary: No symptoms reported Musculoskeletal: No symptoms reported Skin: No symptoms reported Hematologic/Lymphatic: No symptoms reported Neurological/Psychological: No symptoms reported Physical Exam - Vital signs Vitals: Temp Pulse Resp BP Pulse Ox 101.5 F H 129 H 20 142/96 H 98 08/17/17 08:55 08/17/17 08:55 08/17/17 08:55 08/17/17 08:55 08/17/17 08:55 Interpretation: Tachycardic, Febrile - General General appearance: Alert In distress: None - HEENT Head: Normocephalic, Atraumatic Eyes: Normal Conjunctiva: Normal Pupils: PERRL Mucous membranes: Dry Pharynx: Erythema - mild Neck: Supple. No: Lymphadenopathy - Respiratory Respiratory status: No respiratory distress Chest status: Nontender Breath sounds: Normal Chest palpation: Normal - Cardiovascular Rhythm: Regular Heart sounds: Normal auscultation Murmur: No - Abdominal Inspection: Normal Distension: No distension Bowel sounds: Normal Tenderness: Nontender. No: Tender Organomegaly: No organomegaly. No: Hepatomegaly, Splenomegaly - Back Back: Normal, Nontender. No: CVA tenderness - Extremities General upper extremity: Normal inspection, Nontender, Normal color, Normal ROM , Normal temperature General lower extremity: Normal inspection, Nontender, Normal color, Normal ROM , Normal temperature, Normal weight bearing. No: Pravin's sign - Neurological Neuro grossly intact: Yes Cognition: Normal Orientation: AAOx4 Skyler Coma Scale Eye Opening: Spontaneous [place] Coma Scale Verbal: Oriented [place] Coma Scale Motor: Obeys Commands [place] Coma Scale Total: 15 Speech: Normal Motor strength normal: LUE, RUE, LLE, RLE Sensory: Normal - Psychological Associated symptoms: Normal affect, Normal mood - Skin Skin Temperature: Warm Skin Moisture: Dry Skin Color: Normal Skin irregularity: negative: Rash Course - Re-evaluation Re-evalutation: 08/17/17 12:00 chest xray is negative, labs are normal, pt feels better. Vital signs are stable at this time. 08/17/17 12:09 - Vital Signs Vital signs: Temp Pulse Resp BP Pulse Ox 99.3 F 129 H 18 108/64 98 08/17/17 12:00 08/17/17 08:55 08/17/17 12:01 08/17/17 12:01 08/17/17 12:01 - Laboratory Result Diagrams: 08/17/17 09:38 08/17/17 09:38 Laboratory results interpreted by me: 08/17/17 08/17/17 09:38 10:51 Lymphocytes % 12.6 L Monocytes % 13.5 H Urine Blood LARGE H Discharge - Discharge Clinical Impression: cough, Influenza-like illness, fever Condition: Good Disposition: HOME, SELF-CARE Instructions: Acetaminophen, Use of [id number]-[id number] Ibuprofen ([facility]), Influenza ([facility]) 4801-3438, Inhaled Bronchodilators ([facility]) Additional Instructions: Plenty of fluids Rest Use the metered-dose inhaler for the cough and mucus Return to the emergency room if symptoms worsen. Prescriptions: Albuterol Sulfate [Proair HFA Inhalation Aerosol 8.5 gm MDI] 2 puff IH Q3HP PRN #1 [email or web address] PRN Reason: Forms: Return to Work
[2017-08-17] MEDS ORDERED: NORMAL SALINE 1000 ML 2,000 ML IV ONE (09:38)
[2017-08-17] MEDS ORDERED: ONDANSETRON 4 MG TAB.RAPDIS PO ONE (09:54)
[2017-08-17 10:06] LABS: ABSOLUTE EOSINOPHILS # (AUTO) 0.1 10^3/uL (0.0-0.6); ABSOLUTE LYMPHOCYTES (AUTO) 0.8 10^3/uL (0.5-4.7); ABSOLUTE MONOCYTES (AUTO) 0.9 10^3/uL (0.1-1.4); ABSOLUTE NEUT (AUTO) 4.6 10^3/uL (1.7-8.2); BASOPHILS % (AUTO) 0.6 % (0-2); EOSINOPHILS % (AUTO) 2.2 % (0-6); HEMATOCRIT 40.1 % (36.0-47.0); HEMOGLOBIN 13.7 g/dL (12.0-15.5); LYMPHOCYTES % (AUTO) 12.6 % (13-45); MEAN CORPUSCULAR HEMOGLOBIN 31.7 pg (27.0-33.4); MEAN CORPUSCULAR HGB CONC 34.1 g/dL (32.0-36.0); MEAN CORPUSCULAR VOLUME 93 fl (80-97); MONOCYTES % (AUTO) 13.5 % (3-13); PLATELET COUNT 262 10^3/uL (150-450); RED CELL DISTRIBUTION WIDTH 13.4 % (11.5-14.0); SEGMENTED NEUTROPHILS % (AUTO) 71.1 % (42-78); TOTAL CELLS COUNTED % (AUTO) 100 %; WHITE BLOOD COUNT 6.5 10^3/uL (4.0-10.5)
[2017-08-17 10:25] LABS: ALANINE AMINOTRANSFERASE 28 U/L (9-52); ALBUMIN 4.2 g/dL (3.5-5.0); ALKALINE PHOSPHATASE 83 U/L (38-126); ANION GAP 9 (5-19); ASPARTATE AMINO TRANSFERASE 28 U/L (14-36); BILIRUBIN,DIRECT 0.1 mg/dL (0.0-0.4); BILIRUBIN,TOTAL 0.2 mg/dL (0.2-1.3); BLOOD UREA NITROGEN 8 mg/dL (7-20); CALCIUM 9.3 mg/dL (8.4-10.2); CARBON DIOXIDE 25 mmol/L (22-30); CHLORIDE 104 mmol/L (98-107); GLUCOSE 92 mg/dL (75-110); POTASSIUM 3.8 mmol/L (3.6-5.0); SODIUM 137.6 mmol/L (137-145); TOTAL PROTEIN 6.9 g/dL (6.3-8.2)
[2017-08-17] MEDS ORDERED: ACETAMINOPHEN 325 MG TABLET PO ONE (10:44)
[2017-08-17 11:34] LABS: APPEARANCE,URINE CLEAR; BILIRUBIN,URINE NEGATIVE (NEGATIVE); COLOR,URINE YELLOW; GLUCOSE, URINE NEGATIVE (NEGATIVE); KETONES,URINE NEGATIVE (NEGATIVE); LEUKOCYTE ESTERASE,URINE NEGATIVE (NEGATIVE); NITRITE,URINE NEGATIVE (NEGATIVE); PROTEIN,URINE NEGATIVE (NEGATIVE); URINE SPECIFIC GRAVITY 1.008; UROBILINOGEN,URINE NEGATIVE mg/dL (<2.0)
--- NOTE | 2017-08-17 11:55 | RADIOLOGY REPORT (SQ) ---
EXAM DESCRIPTION: CHEST PA/LAT COMPLETED DATE/TIME: 08/17/2017 11:33 am REASON FOR STUDY: cough COMPARISON: 03/29/2017 EXAM PARAMETERS: NUMBER OF VIEWS: two views TECHNIQUE: Digital Frontal and Lateral radiographic views of the chest acquired. RADIATION DOSE: NA LIMITATIONS: none FINDINGS: LUNGS AND PLEURA: No opacities, masses or pneumothorax. No pleural effusion. MEDIASTINUM AND HILAR STRUCTURES: No masses or contour abnormalities. HEART AND VASCULAR STRUCTURES: Heart normal size. No evidence for failure. BONES: No acute findings. HARDWARE: None in the chest. OTHER: No other significant finding. IMPRESSION: NO SIGNIFICANT RADIOGRAPHIC FINDING IN THE CHEST. TECHNICAL DOCUMENTATION: JOB ID: [id number] [email or web address]- All Rights Reserved Reading location - IP/workstation name: [email or web address]
[2017-08-17 12:06] VITALS: BP 108/64
== END 2017-08-17 12:23 | disposition home or self-care (01) ==
LOC: ER 08:52
DX: J11.1 Influenza due to unidentified influenza virus with other respiratory manifestations (principal); R05 Cough; R11.2 Nausea with vomiting, unspecified; R09.81 Nasal congestion; R50.9 Fever, unspecified; M79.1 Myalgia; I10 Essential (primary) hypertension; R00.0 Tachycardia, unspecified
CPT/HCPCS: 99284; 96360; 36415; 87040; 87086; 85025; 80053; 81001; 71046; S0119; J7030

== ENCOUNTER 2017-09-06 22:57 | Emergency (ER) | payer SELFPAY ==
--- NOTE | 2017-09-07 00:52 | ER Document Report ---
ED General - General Chief Complaint: Numbness of Arm Stated Complaint: ARM NUMBNESS Time Seen by Provider: 09/07/17 00:34 Mode of Arrival: Ambulatory Information source: Patient Notes: 32-year-old female with history of hyperlipidemia, intracranial hypertension, seizures presents with complaint of right arm pain that started 8 hours prior to arrival. Patient states that she attempted to donate plasma earlier today. She states they attempted to draw her blood but were unsuccessful. She states they pushed saline into the IV and she developed a an area of swelling and "hardness". States shortly after that she began developing pain with extension of the right elbow and paresthesias in her fingers. She also states that she recently diagnosed herself with "tennis elbow" after her mother move many boxes. She has been wearing a brace over that area. She tried Flexeril and ibuprofen without relief. Denies any neck pain, shoulder pain, prior similar symptoms. She denies any history of DVT, PE. Currently she denies any fever, chills, chest pain, shortness of breath, abdominal pain, back pain. TRAVEL OUTSIDE OF THE [place] IN LAST 30 DAYS: No - HPI Onset: Yesterday Onset/Duration: Gradual Quality of pain: Achy, Burning Severity: Mild Associated symptoms: None Exacerbated by: Movement Relieved by: Remaining still Similar symptoms previously: No Recently seen / treated by doctor: No - Related Data Allergies/Adverse Reactions: Coconut * [Coconut] Allergy (Verified 09/07/17 01:12) Hives morphine [Morphine] Adverse Reaction (Intermediate, Verified 09/07/17 01:12) NIGHTMARES; N/V Shellfish * [Shellfish] Adverse Reaction (Intermediate, Verified 09/07/17 01:12) BURNING SKIN SENSATION; RED SKIN SILK TAPE Allergy (Intermediate, Uncoded 08/17/17 08:52) Past Medical History - General Information source: Patient, [facility] Records - Social History Smoking Status: Never Smoker Frequency of alcohol use: None Drug Abuse: None Lives with: Alone Family History: Arthritis, CAD, DM, Hyperlipidemia, Hypertension, Thyroid Disfunction Patient has suicidal ideation: No Patient has homicidal ideation: No - Past Medical History Cardiac Medical History: Reports: Hx Hypercholesterolemia, Hx Hypertension - intra cranial Denies: Hx Coronary Artery Disease, Hx Heart Attack Pulmonary Medical History: Denies: Hx Asthma, Hx Bronchitis, Hx COPD, Hx Pneumonia, Hx Tuberculosis Neurological Medical History: Reports: Hx Seizures. Denies: Hx Cerebrovascular Accident Renal/ Medical History: Denies: Hx Peritoneal Dialysis GI Medical History: Reports: Hx Gastroesophageal Reflux Disease. Denies: Hx Hepatitis, Hx Hiatal Hernia, Hx Ulcer Musculoskeltal Medical History: Denies Hx Arthritis, Reports Hx Musculoskeletal Deformity Psychiatric Medical History: Denies: Hx Depression Infectious Medical History: Denies: Hx Hepatitis Past Surgical History: Reports: Hx Adenoidectomy, Hx Cholecystectomy, Hx Gynecologic Surgery, Hx Oral Surgery - [place] teeth, Hx Orthopedic Surgery - Bunion to foot and nerve removal, Hx Tonsillectomy. Denies: Hx Open Heart Surgery, Hx Pacemaker - Immunizations Immunizations up to date: Yes Hx Diphtheria, Pertussis, Tetanus Vaccination: No Review of Systems - Review of Systems Notes: Denies any neck pain, shoulder pain, prior similar symptoms. She denies any history of DVT, PE. Currently she denies any fever, chills, chest pain, shortness of breath, abdominal pain, back pain. Physical Exam - Vital signs Vitals: Temp Pulse Resp BP Pulse Ox 98.1 F 100 20 147/84 H 98 09/06/17 23:02 09/06/17 23:02 09/06/17 23:02 09/06/17 23:02 09/06/17 23:02 - Notes Notes: PHYSICAL EXAMINATION: GENERAL: Well-appearing, well-nourished and in no acute distress. HEAD: Atraumatic, normocephalic. EYES: Pupils equal round and reactive to light, extraocular movements intact, conjunctiva are normal. ENT: Nares patent, oropharynx clear without exudates. Moist mucous membranes. NECK: Normal range of motion, supple without lymphadenopathy LUNGS: Breath sounds clear to auscultation bilaterally and equal. No wheezes rales or rhonchi. HEART: Regular rate and rhythm without murmurs ABDOMEN: Soft, nontender, nondistended abdomen. No guarding, no rebound. No masses appreciated. Female : deferred Musculoskeletal: Decreased range of motion right elbow, mild edema of the right hand. No cyanosis. Cap refill intact. No erythema. No neuro deficits of the right upper extremity. 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 NEUROLOGICAL: Cranial nerves grossly intact. Normal speech, normal gait. Normal sensory, motor exams PSYCH: Normal mood, normal affect. SKIN: Warm, Dry, normal turgor, no rashes or lesions noted. Course - Re-evaluation Re-evalutation: 09/07/17 00:52 32-year-old female with history of hyperlipidemia, intracranial hypertension, seizures presents with complaint of right arm pain that started 8 hours prior to arrival. Patient states that she attempted to donate plasma earlier today. She states they attempted to draw her blood but were unsuccessful. She states they pushed saline into the IV and she developed a an area of swelling and "hardness". States shortly after that she began developing pain with extension of the right elbow and paresthesias in her fingers. 09/07/17 07:16 She received Percocet, and an ice pack. On reevaluation she states pain has improved. She has full range of motion of right elbow. An Rick wrap was provided. She was advised to elevate the area. Patient was discharged home in improved condition. - Vital Signs Vital signs: Temp Pulse Resp BP Pulse Ox 97.5 F 86 16 139/87 H 98 09/07/17 01:38 09/07/17 01:38 09/07/17 01:38 09/07/17 01:38 09/07/17 01:38 Discharge - Discharge Clinical Impression: Edema of upper extremity, Paresthesia of right upper extremity Elbow strain Qualifiers: Encounter type: initial encounter Laterality: right Qualified Code(s): S56.911A - Strain of unspecified muscles, fascia and tendons at forearm level, right arm, initial encounter Condition: Good Disposition: HOME, SELF-CARE Instructions: Edema, Peripheral ([facility]), Elbow Effusion ([facility]) Additional Instructions: Please ice the area of discomfort. Maintain your Rick wrap for the next 3-5 days. Elevate your arm whenever possible. Please return if swelling worsens, you experience chest pain or shortness of breath. Please return if he developed redness around the puncture site. Prescriptions: Hydrocodone/Acetaminophen [[place] 5-325 mg Tablet] 1 tab PO Q6H #10 tablet Forms: Return to Work Referrals: ARABELLA SLAUGHTER MD [COMMUNITY BASED STAFF] - Follow up in 3-5 days
[2017-09-07] MEDS ORDERED: OXYCODONE-ACETAMINOPHEN 5-325 MG TABLET PO ONE (00:53)
[2017-09-07 01:45] VITALS: BP 139/87
== END 2017-09-07 01:50 | disposition home or self-care (01) ==
LOC: ER 22:57
DX: R20.2 Paresthesia of skin (principal); R60.0 Localized edema; G93.2 Benign intracranial hypertension; M79.601 Pain in right arm; Z98.890 Other specified postprocedural states; Z91.018 Allergy to other foods
CPT/HCPCS: 99284

== ENCOUNTER 2017-10-14 16:16 | Emergency (ER) | payer SELFPAY ==
[2017-10-14] MEDS ORDERED: CEPHALEXIN 500 MG CAPSULE PO ONE (17:17)
[2017-10-14] MEDS ORDERED: LIDOCAINE 1% INJ (10 MG/ML) 10 ML MDV INJ ONE (17:17)
[2017-10-14] MEDS ORDERED: SULFAMETHOXAZOLE/TRIMETHOPRIM 800-160 MG TABLET PO ONE (17:18)
--- NOTE | 2017-10-14 17:44 | ER Document Report ---
HPI - HPI Patient complains to provider of: paronychia Onset: Other - Sunday Quality of pain: Sharp, Throbbing Pain Level: 4 Associated Symptoms: Other - Paronychia Exacerbated by: Movement Relieved by: Denies Similar symptoms previously: No Recently seen / treated by doctor: Yes - ROS ROS below otherwise negative: Yes - CONSTITUTIONAL Constitutional: DENIES: Fever, Chills - EENT EENT: DENIES: Sore Throat, Ear Pain, Nasal Drainage-Clear, Nasal Drainage- Purulent, Congestion, Eye problems - NEURO Neurology: DENIES: Headache, Weakness, Vision blurred, Dizzinesss / Vertigo - CARDIOVASCULAR Cardiovascular: DENIES: Chest pain - RESPIRATORY Respiratory: DENIES: Trouble Breathing, Coughing - GASTROINTESTINAL Gastrointestinal: DENIES: Abdominal Pain, Nausea, Patient vomiting, Diarrhea, Constipation, Black / Bloody Stools - URINARY Urinary: DENIES: Dysuria, Urgency, Frequency - REPRODUCTIVE Reproductive: DENIES: :, Postmenopausal, Abnormal bleeding / discharge - MUSCULOSKELETAL Musculoskeletal: REPORTS: Extremity pain - Paronychia left middle finger - DERM Skin Color: Other - Swollen red paronychia left middle finger Skin Problems: None Past Medical History - General Information source: Patient - Social History Smoking Status: Current Every Day Smoker Cigarette use (# per day): Yes - One half pack per day Chew tobacco use (# tins/day): No Smoking Education Provided: Yes - 4 minutes Frequency of alcohol use: None Drug Abuse: None Occupation: [employer] Lives with: Spouse/Significant other Family History: Arthritis, CAD, DM, Hyperlipidemia, Hypertension, Thyroid Disfunction Patient has suicidal ideation: No Patient has homicidal ideation: No - Past Medical History Cardiac Medical History: Reports: Hx Hypercholesterolemia, Hx Hypertension - intra cranial Pulmonary Medical History: Reports: Hx Bronchitis EENT Medical History: Reports: None Neurological Medical History: Reports: Hx Seizures Endocrine Medical History: Reports: None Renal/ Medical History: Reports: None, Hx Pelvic Inflammatory Disease Malignancy Medical History: Reports: None GI Medical History: Reports: Hx Gastroesophageal Reflux Disease Musculoskeltal Medical History: Reports Hx Musculoskeletal Deformity Skin Medical History: Reports None Psychiatric Medical History: Reports: None Traumatic Medical History: Reports: None Past Surgical History: Reports: Hx Adenoidectomy, Hx Appendectomy, Hx Cholecystectomy, Hx Gynecologic Surgery - LEEP, Hx Oral Surgery - [place] teeth, Hx Orthopedic Surgery - Bunion to foot and nerve removal, Hx Tonsillectomy - Immunizations Immunizations up to date: Yes Hx Diphtheria, Pertussis, Tetanus Vaccination: No Vertical Provider Document - CONSTITUTIONAL Agree With Documented VS: Yes Exam Limitations: No Limitations General Appearance: WD/WN - INFECTION CONTROL TRAVEL OUTSIDE OF THE [place] IN LAST 30 DAYS: No - HEENT HEENT: Atraumatic, Normal ENT Exam, Normocephalic, PERRLA - NECK Neck: Normal Inspection, Supple, Thyroid Normal - RESPIRATORY Respiratory: Breath Sounds Normal, No Respiratory Distress, Chest Non-Tender - CARDIOVASCULAR Cardiovascular: Regular Rate, Regular Rhythm - MUSCULOSKELETAL/EXTREMETIES Musculoskeletal/Extremeties: MAEW, FROM, Tender - NEURO Level of Consciousness: Awake, Alert, Appropriate Motor/Sensory: No Motor Deficit, No Sensory Deficit - DERM Integumentary: Abscess - Paronychia Course - Vital Signs Vital signs: Temp Pulse Resp BP Pulse Ox 98.9 F 109 H 17 168/88 H 98 10/14/17 16:21 10/14/17 16:21 10/14/17 16:21 10/14/17 16:21 10/14/17 16:21 Procedures - Incision and Drainage Left Finger 3rd digit Time completed: 17:45 Type: Simple - paronychia Anesthetic type: 1% Lidocaine mL's of anesthetic: 3 Blade size: Other - 18 gauge needle I&D procedure: Shurclens applied Incision Method: Incision made with needle Amount/type of drainage: small amount purulent Discharge - Discharge Clinical Impression: Paronychia of left middle finger HTN (hypertension) Qualifiers: Hypertension type: unspecified Qualified Code(s): I10 - Essential (primary) hypertension Condition: Stable Disposition: HOME, SELF-CARE Instructions: Family Physicians / Practices Additional Instructions: Paronychia You have an infection between the nail and the surrounding skin, called a paronychia. The germs infect the area after a minor skin injury, such as a hangnail. This infection is treated by releasing the pus. This is usually done by the skin from the nail. If the infection has spread underneath the nail, partial removal of the nail may be necessary. Hot-soak the area three or four times daily. Antibiotics are often given, but are not always necessary. Healing takes about a week. If pain or swelling becomes severe or if you develop fever or chills, call the doctor or return for re-examination. POST INCISION AND DRAINAGE: You have had an incision made to allow drainage of an abscess. The incision must remain open so that pus and debris can drain from the wound. If the abscess cavity is large, packing is placed. This keeps the tissues from collapsing and trapping pus inside, while the body shrinks the cavity. The packing may need to be replaced every day or two. The physician will instruct you on the packing. Keep a bulky dressing over the area. Replace it if it becomes saturated with blood or pus. Do not disturb the packing (if present). You may shower and cleanse the area with gentle soap and warm water two or three times a day. Local warmth may be soothing, and may promote faster healing. Return if you develop high fever or chills, or if you note spreading redness, increasing swelling, or increasing tenderness. CEPHALEXIN: The antibiotic you've been prescribed is a member of the cephalosporin class. This type of antibiotic covers a wide variety of infections, including those of the skin, lungs, and urinary tract. It's useful for staph infections. This antibiotic is slightly similar to the penicillin family. In rare cases , a person who is allergic to penicillin will also be allergic to this medication. If you have had a severe allergic reaction to penicillin, and have not taken this antibiotic since that time, notify your doctor. Antibiotics which cover many germs ("broad spectrum" antibiotics) are more likely to cause diarrhea or "yeast" infections. Women prone to vaginal yeast problems may suffer an attack after taking this antibiotic. In infants, oral thrush (white spots "stuck" on the cheek) or yeast diaper rash may result. See your doctor if these problems occur. Call at once if you develop itching, hives , shortness of breath, or lightheadedness. TRIMETHOPRIM-SULFA: You have been given a prescription for trimethoprim-sulfa (TMS, Septra, Bactrim). This is a combination antibiotic of the sulfa class, often used for urinary tract infections, middle ear infections, bronchitis, shigella intestinal infection, and Pneumocystis pneumonia. TMS is usually well-tolerated. Occasional side effects include nausea and decreased appetite. Septra is not recommended for infants less than two months of age. Do not take this medication if you have experienced severe side effects or allergy to sulfa medicine. You should stop this medicine at once and contact your physician if you develop any rash, joint pain, shortness of breath, bruising, or jaundice ( yellow color in the skin), or if you develop any other new or unusual symptoms. Epsom Salt Soaks Soak the wound area in a container of warm epsom salt water. If you can't get the wound area into a bucket or rocha, use a folded towel soaked in the epsom salt solution and apply to the area. Use clean hot tap water (about the temperature of a very warm bath), mixing in about one (1) teaspoon for every pint of water. Two gallon --> 16 teaspoons Epsom Salts One gallon --> 8 teaspoons Epsom Salts Two quarts --> 4 teaspoons Epsom Salts One quart --> 2 teaspoons Epsom Salts Soak the wound for about 20 minutes while gently moving it around in the water. Repeat this four (4) times a day. FOLLOW-UP CARE: Most simple abscesses will not require a follow up visit. If you had packing placed in the abscess, remove it as instructed by the physician. If you have been referred to a physician for follow-up care, call the physicians office for an appointment as you were instructed or within the next two days. If you experience worsening or a significant change in your symptoms, return to the Emergency Department at any time for re-evaluation. Prescriptions: Cephalexin Monohydrate [Keflex 500 mg Capsule] 500 mg PO QID #20 capsule Sulfamethoxazole/Trimethoprim [Septra-Ds 800-160 mg Tablet] 1 tab PO BID #14 tablet Forms: Elevated Blood Pressure, Smoking Cessation Education, Return to Work
[2017-10-14 18:07] VITALS: BP 157/81
== END 2017-10-14 17:53 | disposition home or self-care (01) ==
LOC: ER 16:16
PROC: 0H9GXZZ Drainage of Left Hand Skin, External Approach (ICD-10-PCS; principal; 2017-10-14)
DX: L03.012 Cellulitis of left finger (principal); F17.210 Nicotine dependence, cigarettes, uncomplicated; E78.00 Pure hypercholesterolemia, unspecified; I10 Essential (primary) hypertension; Z90.49 Acquired absence of other specified parts of digestive tract
CPT/HCPCS: 87070; 87075; 87077; 87205; 99283; 99406

== ENCOUNTER 2018-04-13 20:09 | Emergency (ER) | payer SELFPAY ==
[2018-04-13 20:20] VITALS: BP 147/77
[2018-04-13 20:58] LABS: APPEARANCE,URINE SLIGHTLY-CLOUDY; BILIRUBIN,URINE NEGATIVE (NEGATIVE); COLOR,URINE YELLOW; GLUCOSE, URINE NEGATIVE (NEGATIVE); KETONES,URINE NEGATIVE (NEGATIVE); LEUKOCYTE ESTERASE,URINE NEGATIVE (NEGATIVE); NITRITE,URINE NEGATIVE (NEGATIVE); PROTEIN,URINE NEGATIVE (NEGATIVE); URINE SPECIFIC GRAVITY 1.023
[2018-04-13 21:18] LABS: ABSOLUTE BASOPHILS # (AUTO) 0.2 10^3/uL (0.0-0.2); ABSOLUTE EOSINOPHILS # (AUTO) 0.3 10^3/uL (0.0-0.6); ABSOLUTE LYMPHOCYTES (AUTO) 3.4 10^3/uL (0.5-4.7); ABSOLUTE MONOCYTES (AUTO) 0.7 10^3/uL (0.1-1.4); ABSOLUTE NEUT (AUTO) 6.1 10^3/uL (1.7-8.2); BASOPHILS % (AUTO) 1.8 % (0-2); EOSINOPHILS % (AUTO) 2.5 % (0-6); HEMATOCRIT 38.2 % (36.0-47.0); HEMOGLOBIN 12.8 g/dL (12.0-15.5); LYMPHOCYTES % (AUTO) 32.1 % (13-45); MEAN CORPUSCULAR HEMOGLOBIN 31.6 pg (27.0-33.4); MEAN CORPUSCULAR HGB CONC 33.5 g/dL (32.0-36.0); MEAN CORPUSCULAR VOLUME 94 fl (80-97); MONOCYTES % (AUTO) 6.8 % (3-13); PLATELET COUNT 252 10^3/uL (150-450); RED BLOOD COUNT 4.05 10^6/uL (3.72-5.28); RED CELL DISTRIBUTION WIDTH 13.5 % (11.5-14.0); SEGMENTED NEUTROPHILS % (AUTO) 56.8 % (42-78); TOTAL CELLS COUNTED % (AUTO) 100 %; WHITE BLOOD COUNT 10.7 10^3/uL (4.0-10.5)
[2018-04-13] MEDS ORDERED: PROMETHAZINE HCL 25 MG TABLET PO ONE (21:22)
[2018-04-13] MEDS ORDERED: HYDROCODONE/ACETAMINOPHEN 5-325 MG TABLET PO ONE (21:22)
--- NOTE | 2018-04-13 21:24 | ER Document Report ---
ED GI/ - General Chief Complaint: Abdominal Pain Stated Complaint: STOMACH PAIN/VOMITING Time Seen by Provider: 04/13/18 21:01 Notes: Patient is a 32-year-old female that comes to the emergency department for chief complaint of left-sided abdominal pain that started approximately 4 days ago, she states that intermittently the pain is sharp, she states that intermittently she has vomited for the past several days as well. She states she is getting a lot of heartburn. She states she vomited 3 times today. Normal bowel movements. No fever or chills. She states that when she sits up suddenly she will feel a sharp pain. She denies dysuria, vaginal discharge or bleeding, flank pain. She is sexually active with her significant other. Past medical history of appendectomy, cholecystectomy. She denies any daily medications although reports to me that she has been diagnosed with IBS. TRAVEL OUTSIDE OF THE [place] IN LAST 30 DAYS: No - Related Data Allergies/Adverse Reactions: Coconut * [Coconut] Allergy (Verified 04/13/18 20:34) Hives morphine [Morphine] Adverse Reaction (Intermediate, Verified 04/13/18 20:34) NIGHTMARES; N/V Shellfish * [Shellfish] Adverse Reaction (Intermediate, Verified 04/13/18 20:34) BURNING SKIN SENSATION; RED SKIN SILK TAPE Allergy (Intermediate, Uncoded 04/13/18 20:34) Past Medical History - General Information source: Patient - Social History Smoking Status: Former Smoker Frequency of alcohol use: None Drug Abuse: None Lives with: Family Family History: Arthritis, CAD, DM, Hyperlipidemia, Hypertension, Thyroid Disfunction Patient has suicidal ideation: No Patient has homicidal ideation: No - Past Medical History Cardiac Medical History: Reports: Hx Hypercholesterolemia, Hx Hypertension - intra cranial Denies: Hx Heart Attack Pulmonary Medical History: Reports: Hx Bronchitis Denies: Hx Asthma, Hx COPD, Hx Pneumonia, Hx Tuberculosis Neurological Medical History: Reports: Hx Seizures Renal/ Medical History: Reports: Hx Pelvic Inflammatory Disease. Denies: Hx Peritoneal Dialysis GI Medical History: Reports: Hx Gastroesophageal Reflux Disease. Denies: Hx Hiatal Hernia, Hx Ulcer Musculoskeletal Medical History: Denies Hx Arthritis, Reports Hx Musculoskeletal Deformity Psychiatric Medical History: Denies: Hx Depression Past Surgical History: Reports: Hx Adenoidectomy, Hx Appendectomy, Hx Cholecystectomy, Hx Gynecologic Surgery - LEEP, Hx Oral Surgery - [place] teeth, Hx Orthopedic Surgery - Bunion to foot and nerve removal, Hx Tonsillectomy. Denies: Hx Open Heart Surgery - Immunizations Immunizations up to date: Yes Hx Diphtheria, Pertussis, Tetanus Vaccination: No Review of Systems - Review of Systems Constitutional: No symptoms reported EENT: No symptoms reported Cardiovascular: No symptoms reported Respiratory: No symptoms reported Gastrointestinal: See HPI Genitourinary: No symptoms reported Female Genitourinary: No symptoms reported Musculoskeletal: No symptoms reported Skin: No symptoms reported Hematologic/Lymphatic: No symptoms reported Neurological/Psychological: No symptoms reported Physical Exam - Vital signs Vitals: Temp Pulse Resp BP Pulse Ox 98.5 F 92 20 147/77 H 99 04/13/18 20:19 04/13/18 20:19 04/13/18 20:19 04/13/18 20:19 04/13/18 20:19 - Notes Notes: GENERAL: Alert, interacts well. No acute distress. HEAD: Normocephalic, atraumatic. EYES: Pupils equal, round, and reactive to light. Extraocular movements intact. ENT: Oral mucosa moist, tongue midline. Oropharynx unremarkable. Airway patent. Nares patent, no nasal septal hematoma, TM's intact. NECK: Full range of motion. Supple. Trachea midline. LUNGS: Clear to auscultation bilaterally, no wheezes, rales, or rhonchi. No respiratory distress. HEART: Regular rate and rhythm. No murmur ABDOMEN: Tender in the left lower quadrant extending to the left pelvic area, mildly tender in the left upper quadrant, remaining abdomen is soft and benign. GENITOURINARY: Deferred EXTREMITIES: Moves all 4 extremities spontaneously. No edema, normal radial and dorsalis pedis pulses bilaterally. No cyanosis. BACK: no cervical, thoracic, lumbar midline tenderness. No saddle anesthesia, normal distal neurovascular exam. NEUROLOGICAL: Alert and oriented x3. Normal speech. [cranial nerves II through XII grossly intact]. PSYCH: Normal affect, normal mood. SKIN: Warm, dry, normal turgor. No rashes or lesions noted. Course - Re-evaluation Re-evalutation: Patient is well-appearing, she does have left lower quadrant pain extending to the left pelvis, she has mild left upper quadrant pain and heartburn. She has had a cholecystectomy and appendectomy. Her vital signs are unremarkable. Borderline leukocytosis with no shift, chemistry and urine are unremarkable. Recommended a pelvic examination but this was declined. Ultrasound shows right ovarian cyst, not left ovarian cyst for patient's pain is. No significant findings otherwise. Discussed with patient. By examination with palpation in her left lower quadrant she appears to have some developing colitis which has been present for the last several days although this is not definite. Could be pelvic infection or other etiology. I do have low suspicion of abscess, perforation, or acute surgical abnormality. I discussed at length with patient, after discussion decision was made to not perform CAT scan but she will be placed on Cipro and Flagyl for a short course for possible colitis based on her developing symptoms, persistent left lower quadrant pain. She reports good follow-up. Discussed medications, discussed return precautions in detail. Patient states understanding and agreement. - Vital Signs Vital signs: Temp Pulse Resp BP Pulse Ox 98.5 F 92 20 147/77 H 99 04/13/18 20:19 04/13/18 20:19 04/13/18 20:19 04/13/18 20:19 04/13/18 20:19 - Laboratory Result Diagrams: 04/13/18 21:05 04/13/18 21:05 Laboratory results interpreted by me: 04/13/18 04/13/18 20:42 21:05 WBC 10.7 H Urine Urobilinogen 4.0 H Discharge - Discharge Clinical Impression: LLQ pain Vomiting Qualifiers: Vomiting type: unspecified Vomiting Intractability: non-intractable Nausea presence: with nausea Qualified Code(s): R11.2 - Nausea with vomiting, unspecified Condition: Stable Disposition: HOME, SELF-CARE Additional Instructions: Your workup, symptoms, and evaluation are most suggestive of colitis today. We have begun treatment for this. I recommend clear fluid diet for 1-2 days followed by bland food and slowly progressing to normal diet. Because of your reflux I recommend the Carafate along with [id number] Pepcid. Take nausea medication if needed. 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 Return if you worsen including uncontrolled vomiting, severe pain, fever of 100.4 or greater, bloody bowel movements, or any other concerning or worsening symptoms. Prescriptions: Ciprofloxacin HCl [Cipro 500 mg Tablet] 500 mg PO BID #14 tablet Metronidazole [Flagyl 500 mg Tablet] 500 mg PO TID #21 tablet Promethazine HCl [Phenergan 25 mg Tablet] 25 mg PO Q6H PRN #20 tablet PRN Reason: Sucralfate [Carafate 1 gm Tablet] 1 gm PO QID #20 tablet
[2018-04-13 21:40] LABS: ALANINE AMINOTRANSFERASE 30 U/L (9-52); ALBUMIN 3.7 g/dL (3.5-5.0); ALKALINE PHOSPHATASE 59 U/L (38-126); ANION GAP 12 (5-19); ASPARTATE AMINO TRANSFERASE 23 U/L (14-36); BILIRUBIN,DIRECT 0.3 mg/dL (0.0-0.4); BILIRUBIN,TOTAL 0.3 mg/dL (0.2-1.3); BLOOD UREA NITROGEN 10 mg/dL (7-20); CALCIUM 9.2 mg/dL (8.4-10.2); CARBON DIOXIDE 25 mmol/L (22-30); CHLORIDE 105 mmol/L (98-107); GLUCOSE 89 mg/dL (75-110); LIPASE 57.7 U/L (23-300); POTASSIUM 4.2 mmol/L (3.6-5.0); SODIUM 141.7 mmol/L (137-145); TOTAL PROTEIN 6.3 g/dL (6.3-8.2)
--- NOTE | 2018-04-13 22:44 | RADIOLOGY REPORT (SQ) ---
US PELVIS HISTORY: Left pelvic pain. Nausea. COMPARISON: None. TECHNIQUE: Grayscale, color Doppler, and spectral Doppler ultrasound images of the pelvis were obtained. FINDINGS: The uterus is anteverted and measures 7.3 x 3.4 x 3.4 cm. The endometrium measures 7 mm in thickness. The right ovary measures 3.7 x 2.9 x 3.7 cm and contains a 3.5 x 2.3 x 2.4 cm cyst. The left ovary measures 2.9 x 1.8 x 2.0 cm. Both ovaries contain normal follicles. Normal color Doppler flow is seen in both ovaries. No free fluid is seen in the pelvis. IMPRESSION: 3.5 cm simple right ovarian cyst No follow-up imaging is recommended. Reference: Radiology 2010 Sep;256(3):943-54
[2018-04-13] MEDS ORDERED: METRONIDAZOLE 500 MG TABLET PO ONE (23:09)
[2018-04-13] MEDS ORDERED: CIPROFLOXACIN HCL 500 MG TABLET PO ONE (23:09)
[2018-04-13] MEDS ORDERED: SUCRALFATE 1 GM TABLET PO ONE (23:09)
== END 2018-04-14 00:11 | disposition home or self-care (01) ==
LOC: ER 20:09
DX: R11.2 Nausea with vomiting, unspecified (principal); R10.32 Left lower quadrant pain; R12 Heartburn; E78.00 Pure hypercholesterolemia, unspecified; I10 Essential (primary) hypertension; Z88.6 Allergy status to analgesic agent; Z91.013 Allergy to seafood; Z90.49 Acquired absence of other specified parts of digestive tract; Z87.891 Personal history of nicotine dependence
CPT/HCPCS: 36415; 76830; 80053; 81001; 81025; 83690; 85025; 93976; 99284

== ENCOUNTER 2018-06-15 10:00 | Emergency (ER) | payer SELFPAY ==
[2018-06-15] MEDS ORDERED: IPRATROPIUM/ALBUTEROL 0.5-2.5 MG/3 ML AMPUL NEB ONE (10:40)
[2018-06-15] MEDS ORDERED: PREDNISONE 20 MG TABLET PO ONE (10:40)
--- NOTE | 2018-06-15 11:23 | ER Document Report ---
HPI - HPI Time Seen by Provider: 06/15/18 10:31 Pain Level: 5 - CONSTITUTIONAL Constitutional: REPORTS: Chills. DENIES: Fever - EENT EENT: REPORTS: Sore Throat, Ear Pain - right - NEURO Neurology: REPORTS: Headache - RESPIRATORY Respiratory: REPORTS: Coughing - REPRODUCTIVE Reproductive: DENIES: : Past Medical History - Social History Smoking Status: Current Some Day Smoker Frequency of alcohol use: None Drug Abuse: None Family History: Arthritis, CAD, DM, Hyperlipidemia, Hypertension, Thyroid Disfunction Patient has suicidal ideation: No Patient has homicidal ideation: No - Past Medical History Cardiac Medical History: Reports: Hx Hypercholesterolemia, Hx Hypertension - intra cranial Denies: Hx Heart Attack Pulmonary Medical History: Reports: Hx Bronchitis Denies: Hx Asthma, Hx COPD, Hx Pneumonia, Hx Tuberculosis Neurological Medical History: Reports: Hx Seizures Renal/ Medical History: Reports: Hx Pelvic Inflammatory Disease. Denies: Hx Peritoneal Dialysis GI Medical History: Reports: Hx Gastroesophageal Reflux Disease. Denies: Hx Hiatal Hernia, Hx Ulcer Musculoskeletal Medical History: Denies Hx Arthritis, Reports Hx Musculoskeletal Deformity Psychiatric Medical History: Denies: Hx Depression Past Surgical History: Reports: Hx Adenoidectomy, Hx Appendectomy, Hx Cholecystectomy, Hx Gynecologic Surgery - LEEP, Hx Oral Surgery - [place] teeth, Hx Orthopedic Surgery - Bunion to foot and nerve removal, Hx Tonsillectomy. Denies: Hx Open Heart Surgery - Immunizations Immunizations up to date: Yes Hx Diphtheria, Pertussis, Tetanus Vaccination: No Vertical Provider Document - INFECTION CONTROL TRAVEL OUTSIDE OF THE [place] IN LAST 30 DAYS: No Course - Vital Signs Vital signs: Temp Pulse Resp BP Pulse Ox 98.7 F 112 H 20 140/102 H 98 06/15/18 10:24 06/15/18 10:24 06/15/18 10:24 06/15/18 10:24 06/15/18 10:24 Discharge - Discharge Clinical Impression: Viral upper respiratory illness Condition: Stable Disposition: HOME, SELF-CARE Additional Instructions: UPPER RESPIRATORY ILLNESS: You have a viral infection of the respiratory passages -- a "cold." This common infection causes nasal congestion, drainage, and often sore throat and cough. It is highly contagious. The disease usually lasts about 10 to 14 days. There is no "cure" for the viral infection -- it must run its course. If there is a complication, such as bacterial infection in the nose, sinuses, middle ear, or bronchial tubes, antibiotics may be required. The antibiotics won't affect the virus. Drink plenty of fluids. A humidifier may help. An expectorant medication or decongestant may make you more comfortable. Use acetaminophen or ibuprofen for fever or aches. See the doctor if fever persists over two days, if there is any significant worsening of your symptoms, or if you simply fail to improve as expected. BRONCHOSPASM: You have tightness in the bronchial tubes, called bronchospasm. This often occurs with bronchial infections. Allergies, inhaled chemicals, and polluted or cold air can also provoke bronchospasm. It's more likely in patients with asthma in the family. Emergency treatment of bronchospasm may include adrenaline shots or bronchodilator aerosol. You may feel lightheaded and have a rapid pulse for an hour or two. Rest and get plenty of fluids. At home, we'll treat you with a bronchodilator inhaler. Antibiotics and corticosteroids may be required for some patients. Until you recover, avoid chemical fumes, dusts, pollens, and exercising in very cold or dry air. If you smoke, stop now!! If you develop a fever, increased wheezing, chest pain, or severe shortness of breath, you should contact the doctor immediately. COUGH-SUPPRESSANT & EXPECTORANT MEDICATION: You are to use a cough medication as needed for relief of symptoms. This medicine is a combination of an expectorant (to make the mucous thinner and more easily "coughed up") and a cough suppressant (to reduce the frequency of coughing). The cough-suppressant medicine is related to narcotics. You may experience mild nausea and sleepiness. Some patients who are very sensitive to narcotics may have stomach pain from this medicine. Taking the medicine with food reduces these side effects. Do not drive or work with machinery until you know how this medicine affects you. The expectorant should have no side effects. Iodine-containing expectorants (such as organidin) should not be taken by persons with active thyroid disease unless approved by your doctor. Call the doctor if you develop shortness of breath, hives, rash, itching, lightheadedness, or severe nausea and vomiting. INHALED BRONCHODILATORS: You have received a treatment of and/or prescription for an inhaled bronchodilator -- a medication which stimulates the airways in the lung to dilate. This improves the flow of air in asthma, bronchitis, and emphysema. These medicines have some similarity to adrenaline, and can cause similar side effects: shakiness, racing heart, and a sense of nervousness. These side effects decrease with time. Contact your doctor if these side effects are severe. Do not over-use the medicine. Too-frequent use of the inhaler may make it ineffective. Call your doctor if the inhaler is not controlling your symptoms at the prescribed doses. STEROID MEDICATION: You have been given an injection of or oral medicine of the cortisone/steroid class. This medication is used to control inflammation or allergy. Beto t is usually only given for a short period of time, until the acute process subsides. There are usually no side effects from short-term use of cortisone-like medications. Some persons feel an increased sense of well-being and are not sleepy at bedtime. Long-term use of cortisone medications is best avoided, unless required for a severe condition. If your condition does not remit, or relapses after the course of corticosteroid medication, you should consult your physician. USE OF ACETAMINOPHEN (Tylenol): Acetaminophen may be taken for pain relief or fever control. It's much safer than aspirin, offering a wider range of "safe" dosages. It is safe during . Some brand names are Tylenol, Panadol, Datril, Anacin 3, Tempra, and Liquiprin. Acetaminophen can be repeated every four hours. The following are maximum recommended dosages: >89 pounds or adults 650 mg to 900 mg Acetaminophen can be repeated every four hours. Maximum dose not to exceed 4000 mg a day. SMOKING: If you smoke, you should stop smoking. The tar and chemicals in cigarette smoke are harmful. Smoking has been shown to cause: emphysema chronic bronchitis lung cancer mouth and throat cancer stomach and pancreas cancer premature aging defects In addition, smoking increases ear and lung infections in children of alf enriquez. FOLLOW-UP CARE: If you have been referred to a physician for follow-up care, call the physicians office for an appointment as you were instructed or within the next two days. If you experience worsening or a significant change in your symptoms, notify the physician immediately or return to the Emergency Department at any time for re-evaluation. Please take all medications as prescribed. Her symptoms are most likely being caused by a viral infection. If you smoke please quit smoking. Drink plenty of fluids. Take Tylenol or ibuprofen for any aches or pains. Do not take the codeine cough medication if you are going to be driving. Prescriptions: Codeine Phosphate/Guaifenesin [Codeine-Guaifen 10-100 mg/5 ml] 10 ml PO Q6HP PRN #120 ml PRN Reason: Benzonatate [Tessalon Perles 100 mg Capsule] 100 mg PO Q8HP PRN #40 capsule PRN Reason: Fluticasone Propionate [Flonase Nasal [place] 50 Mcg/[place] 16 gm] 2 sprays NASL Q12 #1 inhaler Prednisone [Deltasone 20 mg Tablet] 3 tab PO DAILY 4 Days #12 tablet Forms: Return to Work
[2018-06-15 11:27] VITALS: BP 149/86
== END 2018-06-15 11:45 | disposition home or self-care (01) ==
LOC: ER 10:00
DX: J06.9 Acute upper respiratory infection, unspecified (principal); B97.89 Other viral agents as the cause of diseases classified elsewhere; R51 Headache
CPT/HCPCS: 94640; 99283; 87070; 87880; J7512; J7620

== ENCOUNTER 2018-08-11 18:39 | Emergency (ER) | payer SELFPAY ==
--- NOTE | 2018-08-11 20:18 | ER Document Report ---
ED Medical Screen (RME) - General Chief Complaint: Laceration Stated Complaint: FINGER LACERATION Time Seen by Provider: 08/11/18 20:18 Mode of Arrival: Ambulatory Information source: Patient TRAVEL OUTSIDE OF THE [place] 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 Tet- UTD - Related Data Allergies/Adverse Reactions: Coconut * [Coconut] Allergy (Verified 06/15/18 10:02) Hives morphine [Morphine] Adverse Reaction (Intermediate, Verified 06/15/18 10:02) NIGHTMARES; N/V Shellfish * [Shellfish] Adverse Reaction (Intermediate, Verified 06/15/18 10:02) BURNING SKIN SENSATION; RED SKIN SILK TAPE Allergy (Intermediate, Uncoded 06/15/18 10:02) Past Medical History - Past Medical History Cardiac Medical History: Reports: Hx Hypercholesterolemia, Hx Hypertension - intra cranial Denies: Hx Heart Attack Pulmonary Medical History: Reports: Hx Bronchitis Denies: Hx Asthma, Hx COPD, Hx Pneumonia, Hx Tuberculosis Neurological Medical History: Reports: Hx Seizures Renal/ Medical History: Reports: Hx Pelvic Inflammatory Disease. Denies: Hx Peritoneal Dialysis GI Medical History: Reports: Hx Gastroesophageal Reflux Disease. Denies: Hx Hiatal Hernia, Hx Ulcer Musculoskeltal Medical History: Denies Hx Arthritis, Reports Hx Musculoskeletal Deformity Psychiatric Medical History: Denies: Hx Depression Past Surgical History: Reports: Hx Adenoidectomy, Hx Appendectomy, Hx Cholecystectomy, Hx Gynecologic Surgery - LEEP, Hx Oral Surgery - [place] teeth, Hx Orthopedic Surgery - Bunion to foot and nerve removal, Hx Tonsillectomy. Denies: Hx Open Heart Surgery - Immunizations Immunizations up to date: Yes Hx Diphtheria, Pertussis, Tetanus Vaccination: No Physical Exam - Vital signs Vitals: Temp Pulse Resp BP Pulse Ox 99.1 F 101 H 16 147/91 H 100 08/11/18 19:27 08/11/18 19:27 08/11/18 19:27 08/11/18 19:27 08/11/18 19:27 Course - Vital Signs Vital signs: Temp Pulse Resp BP Pulse Ox 99.1 F 101 H 16 147/91 H 100 08/11/18 19:27 08/11/18 19:27 08/11/18 19:27 08/11/18 19:27 08/11/18 19:27
[2018-08-11] MEDS ORDERED: LIDOCAINE 1% INJ-PF (10 MG/ML) 30 ML SDV INJ ONE (22:21)
[2018-08-11] MEDS ORDERED: HYDROCODONE/ACETAMINOPHEN 5-325 MG TABLET PO ONE (22:22)
--- NOTE | 2018-08-11 23:18 | ER Document Report ---
ED General - General Chief Complaint: Laceration Stated Complaint: FINGER LACERATION Time Seen by Provider: 08/11/18 20:18 Mode of Arrival: Ambulatory Notes: Patient is a 33-year-old female presents with complaints of a laceration to her finger. She says that she actually cut her finger. She cut her left second digit. She has had tetanus in the last 5 years. She denies any other complaints or injuries. TRAVEL OUTSIDE OF THE [place] IN LAST 30 DAYS: No - Related Data Allergies/Adverse Reactions: Coconut * [Coconut] Allergy (Verified 06/15/18 10:02) Hives morphine [Morphine] Adverse Reaction (Intermediate, Verified 06/15/18 10:02) NIGHTMARES; N/V Shellfish * [Shellfish] Adverse Reaction (Intermediate, Verified 06/15/18 10:02) BURNING SKIN SENSATION; RED SKIN SILK TAPE Allergy (Intermediate, Uncoded 06/15/18 10:02) Past Medical History - General Information source: Patient - Social History Smoking Status: Current Every Day Smoker Frequency of alcohol use: None Drug Abuse: None Family History: Arthritis, CAD, DM, Hyperlipidemia, Hypertension, Thyroid Disfunction Patient has suicidal ideation: No Patient has homicidal ideation: No - Past Medical History Cardiac Medical History: Reports: Hx Hypercholesterolemia, Hx Hypertension - intra cranial Denies: Hx Heart Attack Pulmonary Medical History: Reports: Hx Bronchitis Denies: Hx Asthma, Hx COPD, Hx Pneumonia, Hx Tuberculosis Neurological Medical History: Reports: Hx Seizures Renal/ Medical History: Reports: Hx Pelvic Inflammatory Disease. Denies: Hx Peritoneal Dialysis GI Medical History: Reports: Hx Gastroesophageal Reflux Disease. Denies: Hx Hiatal Hernia, Hx Ulcer Musculoskeletal Medical History: Denies Hx Arthritis, Reports Hx Musculoskeletal Deformity Psychiatric Medical History: Denies: Hx Depression Past Surgical History: Reports: Hx Adenoidectomy, Hx Appendectomy, Hx Cholecystectomy, Hx Gynecologic Surgery - LEEP, Hx Oral Surgery - [place] teeth, Hx Orthopedic Surgery - Bunion to foot and nerve removal, Hx Tonsillectomy. Denies: Hx Open Heart Surgery - Immunizations Immunizations up to date: Yes Hx Diphtheria, Pertussis, Tetanus Vaccination: No Review of Systems - Review of Systems Notes: My Normal Review Basic REVIEW OF SYSTEMS: CONSTITUTIONAL : Denies fever, chills, or sweats. Denies recent illness. MUSCULOSKELETAL: Laceration distal aspect of left second digit. No difficulty flexing or extending the finger. SKIN: Denies rash or skin lesions. HEMATOLOGIC : Denies easy bruising or bleeding. NEUROLOGICAL: Denies sensory or motor loss. ALL OTHER SYSTEMS REVIEWED AND NEGATIVE. Physical Exam - Vital signs Vitals: Temp Pulse Resp BP Pulse Ox 99.1 F 101 H 16 147/91 H 100 08/11/18 19:27 08/11/18 19:27 08/11/18 19:27 08/11/18 19:27 08/11/18 19:27 - Notes Notes: General Appearance: Well nourished, alert, cooperative, no acute distress, no obvious discomfort. Well-appearing. Vitals: reviewed, See vital signs table. Extremities: Good strength with flexion and extension of the left second digit. Patient has a small 1 cm U-shaped laceration is superficial over the lateral aspect of the distal phalanx of the left second digit. Skin: warm, dry, appropriate color, no rash Neuro: speech clear, oriented x 3, normal affect, responds appropriately to questions. Course - Re-evaluation Re-evalutation: 08/11/18 23:24 Laceration had 2 sutures placed. This gave good wound approximation. Prior to sutures being placed laceration was thoroughly irrigated and cleaned. Patient has full flexion-extension of the finger without any difficulty. Nose evidence tendon injury. Laceration is not deep enough to hit the tendon. Distal sensation intact. Patient discharged home encouraged to return to ER immediately if she is any redness or swelling to the finger. She is informed to have the sutures removed in 1 week. 08/12/18 05:31 Dictation of this chart was performed using voice recognition software; therefore, there may be some unintended grammatical errors. - Vital Signs Vital signs: Temp Pulse Resp BP Pulse Ox 99.4 F 95 18 149/85 H 99 08/11/18 23:59 08/11/18 23:59 08/11/18 23:59 08/11/18 23:59 08/11/18 23:59 Procedures - Laceration/Wound Repair Left 2nd digit Wound length (cm): 1 Wound's Depth, Shape: Irregular Anesthetic type: 1% Lidocaine Volume Anesthetic (mLs): 1 Irrigated w/ Saline (mLs): 30 Wound Repaired With: Sutures Suture Size/Type: 6:0, Ethilon Number of Sutures: 2 Post-procedure NV exam normal: No Complications: No Discharge - Discharge Clinical Impression: Laceration Condition: Good Disposition: HOME, SELF-CARE Additional Instructions: LACERATION CARE: Your laceration has been sutured to keep the skin edges aligned during healing. The time of suture removal depends on the nature and location of your cut. Please follow the care instructions the doctor has outlined for you and return for further care, according to the schedule you've been given. Keep the wound and dressing clean. Unless you were told otherwise, you may shower daily, blotting the wound dry with a clean, unused towel. At other times, If the dressing gets wet or blood soaked, remove it and blot the wound dry, then reapply a new dressing. Unless you were instructed otherwise, dressings should be changed at least daily. If any signs of infection occur (swelling, redness, drainage, increasing tenderness, red streaks, tender lumps in the armpit or groin above the laceration, or fever), see the doctor immediately. SOAP CLEANSING: Gently wash the wound daily using a mild soap (like Ivory, Phisoderm, Neutrogena). Use warm water, rubbing gently until all debris, ooze, and crusting have been washed from the wound. Allow to dry briefly (about 10 minutes) after cleaning. Repeat this cleansing at least three times a day for the first two days and then once or twice a day. FOLLOW-UP CARE: Your sutures should be removed in ___7__ days. To facilitate a timely removal of your sutures, you may return to the Emergency Department at [facility]. You do not need to call for an appointment, but the best time to come in for suture removal is early in the morning. If you have been referred to another physician for follow-up care, call that physicians office for an appointment as you were instructed. If you experience a significant change in your laceration, or if you are concerned there may be an infection (swelling, redness, drainage, increasing tenderness, red streaks, tender lumps in the armpit or groin above the laceration, or fever), return to the Emergency Department immediately re-evaluation. Please keep the cut covered when at work. You can use a nonstick bandage to cover it. Return to the ER immediately if there is any redness swelling or signs of infection.
[2018-08-12] VITALS: BP 149/85
== END 2018-08-12 | disposition home or self-care (01) ==
LOC: ER 18:39
DX: S61.211A Laceration without foreign body of left index finger without damage to nail, initial encounter (principal); W45.8XXA Other foreign body or object entering through skin, initial encounter; F17.200 Nicotine dependence, unspecified, uncomplicated; Z88.6 Allergy status to analgesic agent; Z91.013 Allergy to seafood; E78.00 Pure hypercholesterolemia, unspecified; I10 Essential (primary) hypertension; Z90.49 Acquired absence of other specified parts of digestive tract
CPT/HCPCS: 99282; 12001; J3490

== ENCOUNTER 2018-10-03 19:43 | Emergency (ER) | payer SELFPAY ==
--- NOTE | 2018-10-03 21:04 | RADIOLOGY REPORT (SQ) ---
EXAM DESCRIPTION: XR FOOT 3 OR MORE VIEWS COMPLETED DATE/TME: 10/03/2018 20:16 CLINICAL HISTORY: dropped brick on it COMPARISON: None FINDINGS: Three x-ray views of the left foot were submitted. There is no acute fracture or dislocation. Bone mineralization is within normal limits. There is no radiopaque foreign body material. There is an enthesophyte in the insertion of the Achilles tendon. IMPRESSION: No acute fracture or dislocation.
--- NOTE | 2018-10-03 21:39 | ER Document Report ---
ED Extremity Problem, Lower - General Chief Complaint: Foot Injury Stated Complaint: FOOT INJURY Time Seen by Provider: 10/03/18 21:18 TRAVEL OUTSIDE OF THE [place] IN LAST 30 DAYS: No - HPI Notes: Patient is a 33-year-old female that presents to the emergency department for chief complaint of left foot injury. Patient states 2 days ago she dropped a cinder block on her left foot. She is had increased pain and swelling over the top of her left foot since. She states the pain is sharp and located mostly over her fourth and fifth metatarsals and fourth and fifth toes. She has been taking ibuprofen and icing it at home which she states does give her relief of the pain. The pain is worse with movement or ambulation. Patient states she is concerned she may have broke her foot. Past Medical History: Reviewed in chart Past Surgical History: Negative Social History: Denies drugs alcohol and tobacco Family History: Reviewed and noncontributory for presenting illness Allergies: Reviewed, see documented allergy list. REVIEW OF SYSTEMS: CONSTITUTIONAL : No fever No chills No diaphoresis No recent illness EENT: No vision changes No congestion No sore throat CARDIOVASCULAR: No chest pain No palpitations RESPIRATORY: No shortness of breath No cough No difficulty breathing GASTROINTESTINAL: No abdominal pain No nausea No vomiting No diarrhea GENITOURINARY: No dysuria No hematuria No difficulty urinating MUSCULOSKELETAL: No back pain Left foot pain No arm pain SKIN: No rashes No lesions LYMPHATIC: No swollen, enlarged glands. NEUROLOGICAL: No lightheadedness No headache No weakness No paresthesias PSYCHIATRIC: No anxiety No depression PHYSICAL EXAMINATION: Vital signs reviewed, nursing noted reviewed. GENERAL: Well-appearing, well-nourished and in no acute distress. HEAD: Atraumatic, normocephalic. EYES: Eyes appear normal, extraocular movements intact, sclera anicteric, conjunctiva are normal. ENT: nares patent, oropharynx clear without exudates. Moist mucous membranes. NECK: Normal range of motion, supple without lymphadenopathy LUNGS: Breath sounds clear to auscultation bilaterally and equal. No wheezes rales or rhonchi. HEART: Regular rate and rhythm without murmurs ABDOMEN: Soft, nontender, normoactive bowel sounds. No rebound, guarding, or rigidity. No masses appreciated. EXTREMITIES: Tenderness to palpation of left fourth and fifth digit as well as distal fourth and fifth metatarsal with no deformity, mild overlying edema and ecchymosis, good range of motion, NEUROLOGICAL: No focal neurological deficits. Moves all extremities spontaneously Motor and sensory grossly intact on exam. PSYCH: Normal mood, normal affect. SKIN: Warm, Dry, normal turgor, no rashes or lesions noted on exposed skin - Related Data Allergies/Adverse Reactions: Coconut * [Coconut] Allergy (Verified 06/15/18 10:02) Hives morphine [Morphine] Adverse Reaction (Intermediate, Verified 06/15/18 10:02) NIGHTMARES; N/V Shellfish * [Shellfish] Adverse Reaction (Intermediate, Verified 06/15/18 10:02) BURNING SKIN SENSATION; RED SKIN SILK TAPE Allergy (Intermediate, Uncoded 06/15/18 10:02) Past Medical History - Social History Smoking Status: Unknown if Ever Smoked Family History: Arthritis, CAD, DM, Hyperlipidemia, Hypertension, Thyroid Disfunction Patient has suicidal ideation: No Patient has homicidal ideation: No - Past Medical History Cardiac Medical History: Reports: Hx Hypercholesterolemia, Hx Hypertension - intra cranial Denies: Hx Heart Attack Pulmonary Medical History: Reports: Hx Bronchitis Denies: Hx Asthma, Hx COPD, Hx Pneumonia, Hx Tuberculosis Neurological Medical History: Reports: Hx Seizures Renal/ Medical History: Reports: Hx Pelvic Inflammatory Disease. Denies: Hx Peritoneal Dialysis GI Medical History: Reports: Hx Gastroesophageal Reflux Disease. Denies: Hx Hiatal Hernia, Hx Ulcer Musculoskeletal Medical History: Denies Hx Arthritis, Reports Hx Musculoskeletal Deformity Psychiatric Medical History: Denies: Hx Depression Past Surgical History: Reports: Hx Adenoidectomy, Hx Appendectomy, Hx Cholecystectomy, Hx Gynecologic Surgery - LEEP, Hx Oral Surgery - [place] teeth, Hx Orthopedic Surgery - Bunion to foot and nerve removal, Hx Tonsillectomy. Denies: Hx Open Heart Surgery - Immunizations Immunizations up to date: Yes Hx Diphtheria, Pertussis, Tetanus Vaccination: No Physical Exam - Vital signs Vitals: Temp Pulse Resp BP Pulse Ox 98.4 F 95 22 H 147/95 H 100 10/03/18 19:48 10/03/18 19:48 10/03/18 19:48 10/03/18 19:48 10/03/18 19:48 Course - Re-evaluation Re-evalutation: 10/03/18 21:37 Vitals reviewed. Nursing notes reviewed. Patient has edema and tenderness to her dorsal left foot. X-ray shows no acute fracture. Her symptoms are consistent with contusion. She was offered crutches and Motrin in the ER but declined. Patient will be given a note for work. She was counseled on ice, elevation and rest. She will follow with her PCP for reevaluation in 1 to 2 weeks as needed. Foot X-Ray 10/03/18 20:16 IMPRESSION: No acute fracture or dislocation. - Vital Signs Vital signs: Temp Pulse Resp BP Pulse Ox 98.4 F 95 22 H 147/95 H 100 10/03/18 19:48 10/03/18 19:48 10/03/18 19:48 10/03/18 19:48 10/03/18 19:48 Discharge - Discharge Clinical Impression: Contusion of left foot Qualifiers: Encounter type: initial encounter Qualified Code(s): S90.32XA - Contusion of left foot, initial encounter Condition: Stable Disposition: HOME, SELF-CARE Instructions: Contusion ([facility]) Additional Instructions: Please return to the emergency department if you have any worsening, or concern of your symptoms. Please return to the emergency department if you develop chest pain, difficulty breathing, severe abdominal pain, or ongoing vomiting. Please follow-up with your primary care physician in 2-3 days and any other recommended physicians. If prescribed, take all medications as directed. If you have any questions or concerns do not hesitate to return the emergency department for evaluation. Keep your left leg elevated as often as possible. Apply ice to the affected area 2-3 times daily for 20 minutes at a time Take Tylenol and ibuprofen as needed for pain Forms: Elevated Blood Pressure, Return to Work Referrals: [facility] [Provider Group] - Follow up as needed
[2018-10-03 22:23] VITALS: BP 128/76
== END 2018-10-03 22:23 | disposition home or self-care (01) ==
LOC: ER 19:43
DX: S90.32XA Contusion of left foot, initial encounter (principal); W20.8XXA Other cause of strike by thrown, projected or falling object, initial encounter; Z91.018 Allergy to other foods; Z91.048 Other nonmedicinal substance allergy status; G93.2 Benign intracranial hypertension
CPT/HCPCS: 99283

== ENCOUNTER 2018-10-14 23:11 | Emergency (ER) | payer SELFPAY ==
--- NOTE | 2018-10-15 02:02 | ER Document Report ---
HPI - HPI Time Seen by Provider: 10/15/18 01:52 Pain Level: 5 Context: Patient is a 33-year-old female that comes to the emergency department for chief complaint of left foot pain. She had an injury where she dropped a cinder block on her foot 2 weeks ago, she still has some swelling and some pain. She had a negative x-ray initially here, she admits that she is constantly on the foot working 2 jobs. She denies reinjury. She also reports a small blister on the a adolfo. She denies any other complaints. - REPRODUCTIVE Reproductive: DENIES: : Past Medical History - General Information source: Patient - Social History Smoking Status: Never Smoker Frequency of alcohol use: None Drug Abuse: None Family History: Arthritis, CAD, DM, Hyperlipidemia, Hypertension, Thyroid Disfunction - Past Medical History Cardiac Medical History: Reports: Hx Hypercholesterolemia, Hx Hypertension - intra cranial Denies: Hx Heart Attack Pulmonary Medical History: Reports: Hx Bronchitis Denies: Hx Asthma, Hx COPD, Hx Pneumonia, Hx Tuberculosis Neurological Medical History: Reports: Hx Seizures Renal/ Medical History: Reports: Hx Pelvic Inflammatory Disease. Denies: Hx Peritoneal Dialysis GI Medical History: Reports: Hx Gastroesophageal Reflux Disease. Denies: Hx Hiatal Hernia, Hx Ulcer Musculoskeletal Medical History: Denies Hx Arthritis, Reports Hx Musculoskeletal Deformity Psychiatric Medical History: Denies: Hx Depression Past Surgical History: Reports: Hx Adenoidectomy, Hx Appendectomy, Hx Cholecystectomy, Hx Gynecologic Surgery - LEEP, Hx Oral Surgery - [place] teeth, Hx Orthopedic Surgery - Bunion to foot and nerve removal, Hx Tonsillectomy. Denies: Hx Open Heart Surgery - Immunizations Immunizations up to date: Yes Hx Diphtheria, Pertussis, Tetanus Vaccination: No Vertical Provider Document - CONSTITUTIONAL General Appearance: WD/WN, No Apparent Distress, Obese - INFECTION CONTROL TRAVEL OUTSIDE OF THE [place] IN LAST 30 DAYS: No - HEENT HEENT: Atraumatic, Normocephalic - NECK Neck: Normal Inspection - RESPIRATORY Respiratory: Breath Sounds Normal, No Respiratory Distress - CARDIOVASCULAR Cardiovascular: Regular Rate, Regular Rhythm - GI/ABDOMEN Gastrointestinal: Abdomen Soft, Abdomen Non-Tender - BACK Back: Normal Inspection - MUSCULOSKELETAL/EXTREMETIES Musculoskeletal/Extremeties: Tender - left foot with mild soft tissue swelling over the lateral aspect of the foot. This is mild. No noted tenderness, no noted erythema. Tiny blister over the side of the left fifth digit without surrounding erythema or swelling. No noted induration or fluctuance over the foot or digits. Normal cap refill and sensation. Normal leg exam, normal knee exam. Normal extremities otherwise. - NEURO Level of Consciousness: Awake, Alert, Appropriate - DERM Integumentary: Warm, Dry, No Rash Course - Re-evaluation Re-evalutation: X-ray imaging reviewed, no fracture or concerning finding noted. Physical examination suggests that patient is constantly walking on the foot after the initial injury where she dropped a heavy object on her foot and there does not appear to have been the opportunity for the foot to have improved. I do not see evidence of infection, I do not suspect underlying fracture, I did provide with work-release, recommend that her get off of the foot, discussed treatment, follow-up, return precautions. Patient states understanding and agreement. - Vital Signs Vital signs: Temp Pulse Resp BP Pulse Ox 99.0 F 108 H 18 132/99 H 100 10/14/18 23:23 10/14/18 23:23 10/14/18 23:23 10/14/18 23:23 10/14/18 23:23 Discharge - Discharge Clinical Impression: Left foot pain Condition: Stable Disposition: HOME, SELF-CARE Additional Instructions: The original soft tissue swelling/bleeding from the initial injury has not been allowed to completely resolve. As result from constant use there is still some soft tissue swelling and bruising. I still recommend that you elevate this whenever possible, take the anti-inflammatories as prescribed, ice the area, you can keep a Band-Aid and topical antibiotic over the blister area. Because this was not fractured, this should resolve with time but is taking longer because of constant use. Return for any concerning symptoms including severe increased swelling, developing or spreading redness, fever/chills, or any other concerning symptoms. Prescriptions: RX: Naproxen 500 mg PO BID PRN #20 tablet PRN Reason: Forms: Return to Work
[2018-10-15 03:01] VITALS: BP 130/89
== END 2018-10-15 02:10 | disposition home or self-care (01) ==
LOC: ER 23:11
DX: M79.672 Pain in left foot (principal); W20.8XXA Other cause of strike by thrown, projected or falling object, initial encounter; S90.425A Blister (nonthermal), left lesser toe(s), initial encounter; X58.XXXA Exposure to other specified factors, initial encounter
CPT/HCPCS: 99283

== ENCOUNTER 2018-11-01 13:37 | Emergency (ER) | payer SELFPAY ==
[2018-11-01] MEDS ORDERED: SILVER SULFADIAZINE 1% CREAM 25 GM TP ONE (14:38)
--- NOTE | 2018-11-01 14:40 | ER Document Report ---
HPI - HPI Time Seen by Provider: 11/01/18 14:02 Pain Level: 2 Context: Patient is a 33-year-old female who presents the emergency department with a chief complaint of an adhesive burn to her right thigh. She normally wears a knee brace on her right knee and yesterday she put a Band-Aid on an area where her knee brace had rubbed and she took the Band-Aid off and she ended up with blisters in the area of the adhesive. She is apparently allergic to adhesives. She has not seen her primary care provider regards to this issue. Denies any fever, body aches, or chills. - CONSTITUTIONAL Constitutional: DENIES: Fever, Chills - EENT EENT: DENIES: Sore Throat, Ear Pain - NEURO Neurology: DENIES: Headache, Weakness - CARDIOVASCULAR Cardiovascular: DENIES: Chest pain - RESPIRATORY Respiratory: DENIES: Trouble Breathing, Coughing - GASTROINTESTINAL Gastrointestinal: DENIES: Abdominal Pain - REPRODUCTIVE Reproductive: DENIES: : - MUSCULOSKELETAL Musculoskeletal: REPORTS: Extremity pain - Right medial thigh. DENIES: Back Pain, Neck Pain, Swelling - DERM Skin Color: Normal Skin Problems: Blister - With surrounding cellulitis Past Medical History - Social History Smoking Status: Never Smoker Family History: Arthritis, CAD, DM, Hyperlipidemia, Hypertension, Thyroid Disfunction - Past Medical History Cardiac Medical History: Reports: Hx Hypercholesterolemia, Hx Hypertension - intra cranial Denies: Hx Heart Attack Pulmonary Medical History: Reports: Hx Bronchitis Denies: Hx Asthma, Hx COPD, Hx Pneumonia, Hx Tuberculosis Neurological Medical History: Reports: Hx Seizures Renal/ Medical History: Reports: Hx Pelvic Inflammatory Disease. Denies: Hx Peritoneal Dialysis GI Medical History: Reports: Hx Gastroesophageal Reflux Disease. Denies: Hx Hiatal Hernia, Hx Ulcer Musculoskeletal Medical History: Denies Hx Arthritis, Reports Hx Musculoskeletal Deformity Psychiatric Medical History: Denies: Hx Depression Past Surgical History: Reports: Hx Adenoidectomy, Hx Appendectomy, Hx Cholecystectomy, Hx Gynecologic Surgery - LEEP, Hx Oral Surgery - [place] teeth, Hx Orthopedic Surgery - Bunion to foot and nerve removal, Hx Tonsillectomy. Denies: Hx Open Heart Surgery - Immunizations Immunizations up to date: Yes Hx Diphtheria, Pertussis, Tetanus Vaccination: No Vertical Provider Document - CONSTITUTIONAL Agree With Documented VS: Yes Exam Limitations: No Limitations General Appearance: No Apparent Distress - INFECTION CONTROL TRAVEL OUTSIDE OF THE .[place] IN LAST 30 DAYS: No - HEENT HEENT: Atraumatic, Normocephalic, PERRLA - NECK Neck: Normal Inspection - RESPIRATORY Respiratory: Breath Sounds Normal, No Respiratory Distress - CARDIOVASCULAR Cardiovascular: Regular Rate, Regular Rhythm Pulses: Normal: Radial, Dorsalis pedis - MUSCULOSKELETAL/EXTREMETIES Musculoskeletal/Extremeties: FROM - NEURO Level of Consciousness: Awake, Alert, Appropriate Motor/Sensory: No Motor Deficit, No Sensory Deficit - DERM Integumentary: Warm, Dry Notes: Erythema noted around the area of where the adhesive dressing was. Discharge - Discharge Clinical Impression: Second degree burn Cellulitis Qualifiers: Site of cellulitis: extremity Site of cellulitis of extremity: lower extremity Laterality: right Qualified Code(s): L03.115 - Cellulitis of right lower limb Condition: Stable Disposition: HOME, SELF-CARE Additional Instructions: The rash is likely due to infection of your skin. You need to take the antibiotics as prescribed. Do not stop even if the rash goes away until you have completed all the antibiotics. You are being provided Silvadene cream. Please apply the cream twice a day for the next 7 days. Please return if you develop fevers with temperature greater than 101, persistent vomiting, worsening pain, or have any other symptoms that are concerning to you. You can follow-up with the [facility] for your regular health care needs. Prescriptions: Cephalexin Monohydrate [Keflex 500 mg Capsule] 500 mg PO Q6H 7 Days #28 capsule Forms: Return to Work Referrals: [facility] [Provider Group] - Follow up as needed
[2018-11-01 15:03] VITALS: BP 158/87
== END 2018-11-01 15:03 | disposition home or self-care (01) ==
LOC: ER 13:37
DX: T24.211A Burn of second degree of right thigh, initial encounter (principal); L03.115 Cellulitis of right lower limb; X58.XXXA Exposure to other specified factors, initial encounter; G93.2 Benign intracranial hypertension
CPT/HCPCS: 99282

== ENCOUNTER 2019-01-14 23:37 | Emergency (ER) | payer SELFPAY ==
[2019-01-15 00:40] LABS: APPEARANCE,URINE CLOUDY; BILIRUBIN,URINE NEGATIVE (NEGATIVE); COLOR,URINE AMBER; GLUCOSE, URINE NEGATIVE (NEGATIVE); KETONES,URINE TRACE mg/dL (NEGATIVE); LEUKOCYTE ESTERASE,URINE NEGATIVE (NEGATIVE); NITRITE,URINE NEGATIVE (NEGATIVE); PROTEIN,URINE 30 mg/dL (NEGATIVE); URINE SPECIFIC GRAVITY 1.035
[2019-01-15 01:26] LABS: ABSOLUTE EOSINOPHILS # (AUTO) 0.3 10^3/uL (0.0-0.6); ABSOLUTE LYMPHOCYTES (AUTO) 4.2 10^3/uL (0.5-4.7); ABSOLUTE MONOCYTES (AUTO) 0.6 10^3/uL (0.1-1.4); ABSOLUTE NEUT (AUTO) 4.2 10^3/uL (1.7-8.2); BASOPHILS % (AUTO) 0.4 % (0-2); EOSINOPHILS % (AUTO) 3.2 % (0-6); HEMATOCRIT 40.3 % (36.0-47.0); HEMOGLOBIN 13.6 g/dL (12.0-15.5); LYMPHOCYTES % (AUTO) 44.5 % (13-45); MEAN CORPUSCULAR HEMOGLOBIN 31.7 pg (27.0-33.4); MEAN CORPUSCULAR HGB CONC 33.8 g/dL (32.0-36.0); MEAN CORPUSCULAR VOLUME 94 fl (80-97); MONOCYTES % (AUTO) 6.8 % (3-13); PLATELET COUNT 250 10^3/uL (150-450); RED CELL DISTRIBUTION WIDTH 13.9 % (11.5-14.0); SEGMENTED NEUTROPHILS % (AUTO) 45.1 % (42-78); TOTAL CELLS COUNTED % (AUTO) 100 %; WHITE BLOOD COUNT 9.4 10^3/uL (4.0-10.5)
[2019-01-15 01:49] LABS: ALBUMIN 4.1 g/dL (3.5-5.0); ALKALINE PHOSPHATASE 74 U/L (38-126); ANION GAP 8 (5-19); ASPARTATE AMINO TRANSFERASE 28 U/L (14-36); BILIRUBIN,DIRECT 0.3 mg/dL (0.0-0.4); BILIRUBIN,TOTAL 0.3 mg/dL (0.2-1.3); BLOOD UREA NITROGEN 16 mg/dL (7-20); CALCIUM 9.5 mg/dL (8.4-10.2); CARBON DIOXIDE 25 mmol/L (22-30); CHLORIDE 107 mmol/L (98-107); GLUCOSE 85 mg/dL (75-110); POTASSIUM 4.1 mmol/L (3.6-5.0); TOTAL PROTEIN 6.8 g/dL (6.3-8.2)
--- NOTE | 2019-01-15 01:56 | ER Document Report ---
ED Medical Screen (RME) - General Chief Complaint: Nausea/Vomiting Stated Complaint: VOMITING Time Seen by Provider: 01/15/19 01:52 Mode of Arrival: Ambulatory Information source: Patient Notes: 33-year-old female presents to ED for complaint of severe pelvic pain times a week. She states for the last 3 or 4 days she is been very nauseated when she wakes up that she eats and she feels better and this becomes nauseated again later she states that tonight at work she had a near syncopal episode and they told her to come to the emergency room and get checked out. She states subtypes at work she will just break out in a sweat and she will be cold to the touch. She states she is never had any symptoms like this in the past. She states she has had her tonsils and adenoids removed wisdom tooth removed bunionectomy on her right foot gallbladder removed and appendectomy. She is alert oriented respirations regular and unlabored speaking in full sentences walks with even steady gait. I have greeted and performed a rapid initial assessment of this patient. A comprehensive ED assessment and evaluation of the patient, analysis of test results and completion of medical decision making process will be conducted by an additional ED providers. Dictation of this chart was performed using voice recognition software; therefore, there may be some unintended grammatical errors. TRAVEL OUTSIDE OF THE [place] IN LAST 30 DAYS: No - Related Data Allergies/Adverse Reactions: Coconut * [Coconut] Allergy (Verified 11/01/18 13:41) Hives morphine [Morphine] Adverse Reaction (Intermediate, Verified 11/01/18 13:41) NIGHTMARES; N/V Shellfish * [Shellfish] Adverse Reaction (Intermediate, Verified 11/01/18 13:41) BURNING SKIN SENSATION; RED SKIN SILK TAPE Allergy (Intermediate, Uncoded 11/01/18 13:41) All Tape Allergy (Uncoded 11/01/18 13:41) Past Medical History - Past Medical History Cardiac Medical History: Reports: Hx Hypercholesterolemia, Hx Hypertension - intra cranial Denies: Hx Heart Attack Pulmonary Medical History: Reports: Hx Bronchitis Denies: Hx Asthma, Hx COPD, Hx Pneumonia, Hx Tuberculosis Neurological Medical History: Reports: Hx Seizures Renal/ Medical History: Reports: Hx Pelvic Inflammatory Disease. Denies: Hx Peritoneal Dialysis GI Medical History: Reports: Hx Gastroesophageal Reflux Disease. Denies: Hx Hiatal Hernia, Hx Ulcer Musculoskeltal Medical History: Denies Hx Arthritis, Reports Hx Musculoskeletal Deformity Psychiatric Medical History: Denies: Hx Depression Past Surgical History: Reports: Hx Adenoidectomy, Hx Appendectomy, Hx Cholecystectomy, Hx Gynecologic Surgery - LEEP, Hx Oral Surgery - [place] teeth, Hx Orthopedic Surgery - Bunion to foot and nerve removal, Hx Tonsillectomy. Denies: Hx Open Heart Surgery - Immunizations Immunizations up to date: Yes Hx Diphtheria, Pertussis, Tetanus Vaccination: No Physical Exam - Vital signs Vitals: Temp Pulse Resp BP Pulse Ox 98.5 F 90 16 144/108 H 98 01/15/19 00:10 01/15/19 00:10 01/15/19 00:10 01/15/19 00:10 01/15/19 00:10 Course - Vital Signs Vital signs: Temp Pulse Resp BP Pulse Ox 98.5 F 90 16 144/108 H 98 01/15/19 00:10 01/15/19 00:10 01/15/19 00:10 01/15/19 00:10 01/15/19 00:10 - Laboratory Result Diagrams: 01/15/19 01:07 01/15/19 01:07 Laboratory results interpreted by me: 01/15/19 00:10 Urine Protein 30 H Urine Ketones TRACE H Urine Urobilinogen 2.0 H Urine Ascorbic Acid 20 H
[2019-01-15] MEDS ORDERED: NORMAL SALINE 1000 ML 1,000 ML IV ONE (04:15)
[2019-01-15] MEDS ORDERED: METOCLOPRAMIDE HCL INJ/PF 10 MG/2 ML SDV IV ONE (04:24)
[2019-01-15] MEDS ORDERED: DICYCLOMINE HCL 20 MG TABLET PO ONE (04:24)
[2019-01-15] MEDS ORDERED: FENTANYL CITRATE INJ/PF 100 MCG/2 ML AMPUL IV ONE (04:24)
--- NOTE | 2019-01-15 06:04 | ER Document Report ---
ED General - General Chief Complaint: Nausea/Vomiting Stated Complaint: VOMITING Time Seen by Provider: 01/15/19 01:52 Mode of Arrival: Ambulatory Notes: KERON NOTE: 33-year-old female presents to ED for complaint of severe pelvic pain times a week. She states for the last 3 or 4 days she is been very nauseated when she wakes up that she eats and she feels better and this becomes nauseated again later she states that tonight at work she had a near syncopal episode and they told her to come to the emergency room and get checked out. She states subtypes at work she will just break out in a sweat and she will be cold to the touch. She states she is never had any symptoms like this in the past. She states she has had her tonsils and adenoids removed wisdom tooth removed bunionectomy on her right foot gallbladder removed and appendectomy. She is alert oriented respirations regular and unlabored speaking in full sentences walks with even steady gait. MY HPI: Upon my examination patient does state she has generalized left lower abdominal pain. Patient states she is vomited 2 times and is denying any diarrhea. Denies any blood in her emesis. Patient's denying any fevers, denies any dysuria or vaginal discharge. Patient states she does have a history of irritable bowel syndrome, and then states "I had Crohn's once." Patient does have a history of a cholecystectomy as well as an appendectomy. Examination reveals no pelvic pain noted. It is left lower quadrant pain. TRAVEL OUTSIDE OF THE [place] IN LAST 30 DAYS: No - Related Data Allergies/Adverse Reactions: Coconut * [Coconut] Allergy (Verified 11/01/18 13:41) Hives morphine [Morphine] Adverse Reaction (Intermediate, Verified 11/01/18 13:41) NIGHTMARES; N/V Shellfish * [Shellfish] Adverse Reaction (Intermediate, Verified 11/01/18 13:41) BURNING SKIN SENSATION; RED SKIN SILK TAPE Allergy (Intermediate, Uncoded 11/01/18 13:41) All Tape Allergy (Uncoded 11/01/18 13:41) Past Medical History - General Information source: Patient - Social History Smoking Status: Never Smoker Chew tobacco use (# tins/day): No Frequency of alcohol use: None Drug Abuse: None Family History: Arthritis, CAD, DM, Hyperlipidemia, Hypertension, Thyroid Disfunction Patient has suicidal ideation: No Patient has homicidal ideation: No - Past Medical History Cardiac Medical History: Reports: Hx Hypercholesterolemia, Hx Hypertension - intra cranial Denies: Hx Heart Attack Pulmonary Medical History: Reports: Hx Bronchitis Denies: Hx Asthma, Hx COPD, Hx Pneumonia, Hx Tuberculosis Neurological Medical History: Reports: Hx Seizures Renal/ Medical History: Reports: Hx Pelvic Inflammatory Disease. Denies: Hx Peritoneal Dialysis GI Medical History: Reports: Hx Gastroesophageal Reflux Disease. Denies: Hx Hiatal Hernia, Hx Ulcer Musculoskeletal Medical History: Denies Hx Arthritis, Reports Hx Musculoskeletal Deformity Psychiatric Medical History: Denies: Hx Depression Past Surgical History: Reports: Hx Adenoidectomy, Hx Appendectomy, Hx Cholecystectomy, Hx Gynecologic Surgery - LEEP, Hx Oral Surgery - [place] teeth, Hx Orthopedic Surgery - Bunion to foot and nerve removal, Hx Tonsillectomy. Denies: Hx Open Heart Surgery - Immunizations Immunizations up to date: Yes Hx Diphtheria, Pertussis, Tetanus Vaccination: No Review of Systems - Review of Systems Constitutional: denies: Fever EENT: No symptoms reported Cardiovascular: No symptoms reported Respiratory: No symptoms reported Gastrointestinal: See HPI Genitourinary: See HPI Female Genitourinary: Last menstrual period - Unknown Musculoskeletal: No symptoms reported Skin: No symptoms reported Hematologic/Lymphatic: No symptoms reported Neurological/Psychological: No symptoms reported Physical Exam - Vital signs Vitals: Temp Pulse Resp BP Pulse Ox 98.5 F 90 16 144/108 H 98 01/15/19 00:10 01/15/19 00:10 01/15/19 00:10 01/15/19 00:10 01/15/19 00:10 - Notes Notes: GENERAL: Alert, interacts well. No acute distress. HEAD: Normocephalic, atraumatic. EYES: Pupils equal, round, and reactive to light. Extraocular movements intact. ENT: Oral mucosa moist, tongue midline. NECK: Full range of motion. Supple. Trachea midline. LUNGS: Clear to auscultation bilaterally, no wheezes, rales, or rhonchi. No respiratory distress. HEART: Regular rate and rhythm. No murmur ABDOMEN: Soft, left lower quadrant pain. Non-distended. Bowel sounds present in all 4 quadrants. No McBurney's point tenderness, no Durán sign noted. No pelvic pain noted bilaterally. EXTREMITIES: Moves all 4 extremities spontaneously. No edema, normal radial and dorsalis pedis pulses bilaterally. No cyanosis. BACK: no cervical, thoracic, lumbar midline tenderness. No saddle anesthesia, normal distal neurovascular exam. No CVA tenderness noted bilaterally. NEUROLOGICAL: Alert and oriented x3. Normal speech. cranial nerves II through XII grossly intact PSYCH: Normal affect, normal mood. SKIN: Warm, dry, normal turgor. No rashes or lesions noted. Course - Re-evaluation Re-evalutation: 01/15/19 06:01 Laboratory 01/15/19 01/15/19 01/15/19 00:10 01:07 01:07 WBC 9.4 RBC 4.30 Hgb 13.6 Hct 40.3 MCV 94 MCH 31.7 MCHC 33.8 RDW 13.9 Plt Count 250 Seg Neutrophils % 45.1 Lymphocytes % 44.5 Monocytes % 6.8 Eosinophils % 3.2 Basophils % 0.4 Absolute Neutrophils 4.2 Absolute Lymphocytes 4.2 Absolute Monocytes 0.6 Absolute Eosinophils 0.3 Absolute Basophils 0.0 Sodium 140.2 Potassium 4.1 Chloride 107 Carbon Dioxide 25 Anion Gap 8 BUN 16 Creatinine 0.73 Est GFR ( Amer) > 60 Est GFR (Non-Af Amer) > 60 Glucose 85 Calcium 9.5 Total Bilirubin 0.3 Direct Bilirubin 0.3 Neonat Total Bilirubin Not Reportable Neonat Direct Bilirubin Not Reportable Neonat Indirect Bili Not Reportable AST 28 ALT 21 Alkaline Phosphatase 74 Total Protein 6.8 Albumin 4.1 Urine Color YANET Urine Appearance CLOUDY Urine pH 5.0 Ur Specific [place] 1.035 Urine Protein 30 H Urine Glucose (UA) NEGATIVE Urine Ketones TRACE H Urine Blood NEGATIVE Urine Nitrite NEGATIVE Urine Bilirubin NEGATIVE Urine Urobilinogen 2.0 H Ur Leukocyte Esterase NEGATIVE Urine WBC (Auto) 4 Urine RBC (Auto) 6 Urine Bacteria (Auto) TRACE Squamous Epi Cells Auto 12 Urine Mucus (Auto) MANY Urine Ascorbic Acid 20 H Urine HCG, Qual NEGATIVE 01/15/19 06:02 Patient's labs show no signs of abnormalities. Patient's urine was concentrated signs of dehydration noted. Patient has been treated with nausea medication and fluids in the emergency department. Patient voices that she feels a lot better. I have discussed with her that her labs show no signs of leukocytosis and based on her left lower abdominal pain CT imaging is not warranted at this time. I discussed treating for diverticulitis based on her history of IBS and potential Crohn's. Patient voices understanding and is in agreement of plan. At this time will discharge with return precautions and follow-up recommendations. Verbal discharge instructions given a the bedside and opportunity for questions given. Medication warnings reviewed. Patient is in agreement with this plan and has verbalized understanding of return precautions and the need for primary care follow-up in the next 24-72 hours. This medical record was dictated with voice recognizing software. There may be grammatical, syntax errors that are unintended. 01/15/19 06:05 EKG shows sinus rhythm and rate of 90, QTc 426, no ST segment elevations or depressions noted. - Vital Signs Vital signs: Temp Pulse Resp BP Pulse Ox 98.1 F 82 20 141/92 H 100 01/15/19 04:45 01/15/19 04:45 01/15/19 04:45 01/15/19 04:45 01/15/19 04:45 - Laboratory Result Diagrams: 01/15/19 01:07 01/15/19 01:07 Laboratory results interpreted by me: 01/15/19 00:10 Urine Protein 30 H Urine Ketones TRACE H Urine Urobilinogen 2.0 H Urine Ascorbic Acid 20 H Discharge - Discharge Clinical Impression: Left lower quadrant abdominal pain Vomiting Qualifiers: Vomiting type: unspecified Vomiting Intractability: non-intractable Nausea presence: without nausea Qualified Code(s): R11.11 - Vomiting without nausea Condition: Stable Disposition: HOME, SELF-CARE Instructions: Abdominal Pain ([facility]), Diverticulitis ([facility]), Vomiting ([facility]), Intravenous (IV) Fluids ([facility]) Additional Instructions: As we discussed you have been seen and treated in the emergency department for your lower abdominal pain. Based on your lab results and the location of your pain I am going to treat you for something called diverticulitis. Please make sure you take antibiotics as prescribed. Please also make sure you use pain medication only as needed. Please also use nausea medication as needed. Please follow-up with your primary care provider in the next 24 to 48 hours. Please return to the emergency room for any further concerns. Prescriptions: Amox Tr/Potassium Clavulanate [Augmentin 875-125 Tablet] 1 tab PO BID 10 Days tablet Ondansetron [Zofran Odt 4 mg Tablet] 2 tab PO Q6 PRN #10 tab.rapdis PRN Reason: For Nausea/Vomiting Forms: Return to Work
[2019-01-15] MEDS ORDERED: HYDROCODONE/ACETAMINOPHEN 5-325 MG (6 TAB/ER DISP) PO PRN (06:08)
[2019-01-15 06:28] VITALS: BP 141/91
--- NOTE | 2019-01-15 14:50 | EKG REPORT ---
SEVERITY:- NORMAL ECG - SINUS RHYTHM : Confirmed by: Sondra Taylor 15-Jan-2019 14:49:47
== END 2019-01-15 06:28 | disposition home or self-care (01) ==
LOC: ER 23:37
DX: R10.32 Left lower quadrant pain (principal); R11.11 Vomiting without nausea; G93.2 Benign intracranial hypertension; Z90.49 Acquired absence of other specified parts of digestive tract; Z87.42 Personal history of other diseases of the female genital tract
CPT/HCPCS: 93005; 99283; 96361; 96374; 96375; 36415; 85025; 81025; 80053; 81001; 93010; J3490; J3010; J2765; J7030

== ENCOUNTER 2019-03-20 22:00 | Emergency (ER) | payer SELFPAY ==
[2019-03-20] MEDS ORDERED: ONDANSETRON 4 MG TAB.RAPDIS PO ONE (22:49)
--- NOTE | 2019-03-20 22:49 | ER Document Report ---
ED Medical Screen (RME) - General Chief Complaint: Nausea/Vomiting/Diarrhea Stated Complaint: VOMITING,DIARRHEA Time Seen by Provider: 03/20/19 22:47 Mode of Arrival: Ambulatory Information source: Patient Notes: 33-year-old female presented to ED for complaint of nausea vomiting and diarrhea x2 days. She states she is not able to keep anything down at this time. She states she is not having any pain just nausea vomiting or diarrhea. Menstrual cycle is 25 February. Patient states she smokes 1/2 pack of cigarettes a day but does not drink or do any drugs. Is alert oriented respirations regular and unlabored speaking in full sentences. I have greeted and performed a rapid initial assessment of this patient. A comprehensive ED assessment and evaluation of the patient, analysis of test results and completion of medical decision making process will be conducted by an additional ED providers. TRAVEL OUTSIDE OF THE [place] IN LAST 30 DAYS: No - Related Data Allergies/Adverse Reactions: Coconut * [Coconut] Allergy (Verified 11/01/18 13:41) Hives morphine [Morphine] Adverse Reaction (Intermediate, Verified 11/01/18 13:41) NIGHTMARES; N/V Shellfish * [Shellfish] Adverse Reaction (Intermediate, Verified 11/01/18 13:41) BURNING SKIN SENSATION; RED SKIN SILK TAPE Allergy (Intermediate, Uncoded 11/01/18 13:41) All Tape Allergy (Uncoded 11/01/18 13:41) Past Medical History - Past Medical History Cardiac Medical History: Reports: Hx Hypercholesterolemia, Hx Hypertension - intra cranial Denies: Hx Heart Attack Pulmonary Medical History: Reports: Hx Bronchitis Denies: Hx Asthma, Hx COPD, Hx Pneumonia, Hx Tuberculosis Neurological Medical History: Reports: Hx Seizures Renal/ Medical History: Reports: Hx Pelvic Inflammatory Disease. Denies: Hx Peritoneal Dialysis GI Medical History: Reports: Hx Gastroesophageal Reflux Disease. Denies: Hx Hiatal Hernia, Hx Ulcer Musculoskeltal Medical History: Denies Hx Arthritis, Reports Hx Musculoskeletal Deformity Psychiatric Medical History: Denies: Hx Depression Past Surgical History: Reports: Hx Adenoidectomy, Hx Appendectomy, Hx Cholecystectomy, Hx Gynecologic Surgery - LEEP, Hx Oral Surgery - [place] teeth, Hx Orthopedic Surgery - Bunion to foot and nerve removal, Hx Tonsillectomy. Denies: Hx Open Heart Surgery - Immunizations Immunizations up to date: Yes Hx Diphtheria, Pertussis, Tetanus Vaccination: No Physical Exam - Vital signs Vitals: Temp Pulse Resp BP Pulse Ox 97.9 F 97 20 148/85 H 98 03/20/19 22:09 03/20/19 22:09 03/20/19 22:09 03/20/19 22:09 03/20/19 22:09 Course - Vital Signs Vital signs: Temp Pulse Resp BP Pulse Ox 97.9 F 97 20 148/85 H 98 03/20/19 22:09 03/20/19 22:09 03/20/19 22:09 03/20/19 22:09 03/20/19 22:09
[2019-03-21 00:06] LABS: ABSOLUTE EOSINOPHILS # (AUTO) 0.1 10^3/uL (0.0-0.6); ABSOLUTE LYMPHOCYTES (AUTO) 2.4 10^3/uL (0.5-4.7); ABSOLUTE MONOCYTES (AUTO) 0.7 10^3/uL (0.1-1.4); ABSOLUTE NEUT (AUTO) 4.2 10^3/uL (1.7-8.2); BASOPHILS % (AUTO) 0.5 % (0-2); EOSINOPHILS % (AUTO) 1.8 % (0-6); HEMATOCRIT 40.4 % (36.0-47.0); HEMOGLOBIN 13.6 g/dL (12.0-15.5); LYMPHOCYTES % (AUTO) 31.9 % (13-45); MEAN CORPUSCULAR HEMOGLOBIN 31.7 pg (27.0-33.4); MEAN CORPUSCULAR HGB CONC 33.7 g/dL (32.0-36.0); MEAN CORPUSCULAR VOLUME 94 fl (80-97); MONOCYTES % (AUTO) 9.4 % (3-13); PLATELET COUNT 223 10^3/uL (150-450); RED CELL DISTRIBUTION WIDTH 13.5 % (11.5-14.0); SEGMENTED NEUTROPHILS % (AUTO) 56.4 % (42-78); TOTAL CELLS COUNTED % (AUTO) 100 %; WHITE BLOOD COUNT 7.4 10^3/uL (4.0-10.5)
[2019-03-21 00:17] LABS: ALKALINE PHOSPHATASE 83 U/L (38-126); ANION GAP 9 (5-19); ASPARTATE AMINO TRANSFERASE 35 U/L (14-36); BILIRUBIN,DIRECT 0.2 mg/dL (0.0-0.4); BILIRUBIN,TOTAL 0.2 mg/dL (0.2-1.3); BLOOD UREA NITROGEN 8 mg/dL (7-20); CALCIUM 9.3 mg/dL (8.4-10.2); CARBON DIOXIDE 26 mmol/L (22-30); CHLORIDE 103 mmol/L (98-107); GLUCOSE 82 mg/dL (75-110); POTASSIUM 4.5 mmol/L (3.6-5.0); TOTAL PROTEIN 6.9 g/dL (6.3-8.2)
[2019-03-21 00:56] LABS: APPEARANCE,URINE TURBID; BILIRUBIN,URINE NEGATIVE (NEGATIVE); COLOR,URINE YELLOW; GLUCOSE, URINE NEGATIVE (NEGATIVE); KETONES,URINE TRACE mg/dL (NEGATIVE); PROTEIN,URINE NEGATIVE (NEGATIVE); URINE SPECIFIC GRAVITY 1.026
--- NOTE | 2019-03-21 03:43 | ER Document Report ---
ED GI/ - General Chief Complaint: Nausea/Vomiting/Diarrhea Stated Complaint: VOMITING,DIARRHEA Time Seen by Provider: 03/20/19 22:47 Mode of Arrival: Ambulatory TRAVEL OUTSIDE OF THE [place] IN LAST 30 DAYS: No - HPI Patient complains to provider of: Diarrhea, Vomiting. No: Abdominal pain, Dysuria, Feeding tube problem, Flank pain, Gray catheter problem, Hematuria, Missed/Late menses, Pelvic pain, , Urinary retention, Vaginal bleeding, Vaginal discharge, Vaginal pain, Other Onset: Yesterday Timing/Duration: Gradual. denies: Sudden, Constant, Intermittent, Persistent, Waxing and waning, Better, Worse, Gone Quality of pain: Cramping. denies: No pain, Achy, Burning, Dull, Fullness, Pressure, Sharp, Stabbing, Throbbing, Other Severity in ED: Moderate Pain Level: Denies Context: denies: Bad food, Lifting, Out of the country travel, , Recent trauma, Other Location: No: Chest pain, Epigastric, LUQ, LLQ, RUQ, RLQ, Left flank, Right flank, Low back, Suprapubic, Pelvis, Vaginal, Vulvar, Rectal, Other Associated symptoms: Diarrhea. denies: None, Blood in emesis, Blood in stool, Chest pain, Chills, Coffee ground emesis, Constipation, Dizzy, Dysuria, Fever, Hard stool, Hematuria, Hurts to breath, Inguinal mass, Lightheaded, Loss of appetite, Nausea, Odor, Painful intercourse, Radiates to back, Radiates to chest, Radiates to vagina, Radiates to shoulder, Shortness of breath, Sweaty, Syncope, Urinary hesitancy, Urinary frequency, Urinary retention, Urinary urgency, Vaginal discharge, Other Exacerbated by: Food Relieved by: denies: Denies, Supine, Sitting, Standing, Remaining still, Antacids, Food, Other - Related Data Allergies/Adverse Reactions: Coconut * [Coconut] Allergy (Verified 11/01/18 13:41) Hives morphine [Morphine] Adverse Reaction (Intermediate, Verified 11/01/18 13:41) NIGHTMARES; N/V Shellfish * [Shellfish] Adverse Reaction (Intermediate, Verified 11/01/18 13:41) BURNING SKIN SENSATION; RED SKIN SILK TAPE Allergy (Intermediate, Uncoded 11/01/18 13:41) All Tape Allergy (Uncoded 11/01/18 13:41) Home Medications: . multivitamins. birthcontrol Past Medical History - General Information source: Patient - Social History Smoking Status: Current Every Day Smoker Chew tobacco use (# tins/day): No Frequency of alcohol use: None Drug Abuse: None Family History: Arthritis, CAD, DM, Hyperlipidemia, Hypertension, Thyroid Disfunction Patient has suicidal ideation: No Patient has homicidal ideation: No - Past Medical History Cardiac Medical History: Reports: Hx Hypercholesterolemia, Hx Hypertension - intra cranial Denies: Hx Heart Attack Pulmonary Medical History: Reports: Hx Bronchitis Denies: Hx Asthma, Hx COPD, Hx Pneumonia, Hx Tuberculosis Neurological Medical History: Reports: Hx Seizures Renal/ Medical History: Reports: Hx Pelvic Inflammatory Disease. Denies: Hx Peritoneal Dialysis GI Medical History: Reports: Hx Gastroesophageal Reflux Disease. Denies: Hx Hiatal Hernia, Hx Ulcer Musculoskeletal Medical History: Denies Hx Arthritis, Reports Hx Musculoskeletal Deformity Psychiatric Medical History: Denies: Hx Depression Past Surgical History: Reports: Hx Adenoidectomy, Hx Appendectomy, Hx Cholecystectomy, Hx Gynecologic Surgery - LEEP, Hx Oral Surgery - [place] teeth, Hx Orthopedic Surgery - Bunion to foot and nerve removal, Hx Tonsillectomy. Denies: Hx Open Heart Surgery - Immunizations Immunizations up to date: Yes Hx Diphtheria, Pertussis, Tetanus Vaccination: No Review of Systems - Review of Systems Constitutional: denies: No symptoms reported, See HPI, Chills, Diaphoresis, Fever, Malaise, Weakness, Other, Weight gain, Weight loss, Recent illness EENT: denies: No symptoms reported, See HPI, Eye pain, Eye discharge, Blurred vision, Tearing, Double vision, Ear pain, Ear discharge, Nose pain, Nose congestion, Nose discharge, Sinus pressure, Sinus discharge, Throat pain, Difficulty swallowing, Throat swelling, Mouth pain, Mouth swelling, Dental problem, Vertigo, Other Cardiovascular: denies: No symptoms reported, See HPI, Chest pain, Palpitations, Heart racing, Orthopnea, Dyspnea, Syncope, Dizziness, Lightheaded, Edema, Other, Paroxysmal Nocturnal Dysp Gastrointestinal: Diarrhea, Nausea, Vomiting. denies: No symptoms reported, See HPI, Abdomen distended, Abdominal pain, Constipation, Blood streaked bowels, Poor appetite, Poor fluid intake, Blood in vomit, Black stools, Rectal bleeding, Last bowel movement, Fecal incontinence, Other Genitourinary: denies: No symptoms reported, See HPI, Burning, Dysuria, Discharge, Frequency, Flank pain, Hematuria, Incontinence, Pain, Urgency, Retention, Other Female Genitourinary: denies: No symptoms reported, See HPI, Last menstrual period, , Post menopausal, Heavy/abnormal periods, Irregular period, Vaginal bleeding, Vaginal discharge, Vaginal odor, Painful intercourse, Other -: Yes All other systems reviewed and negative Physical Exam - Vital signs Vitals: Temp Pulse Resp BP Pulse Ox 97.9 F 97 20 148/85 H 98 03/20/19 22:09 03/20/19 22:09 03/20/19 22:09 03/20/19 22:09 03/20/19 22:09 Notes: PHYSICAL EXAMINATION: GENERAL: Well-appearing, well-nourished and in no acute distress. HEAD: Atraumatic, normocephalic. EYES: Pupils equal round and reactive to light, extraocular movements intact, sclera anicteric, conjunctiva are normal. ENT: nares patent, oropharynx clear without exudates. Moist mucous membranes. NECK: Normal range of motion, supple without lymphadenopathy LUNGS: Breath sounds clear to auscultation bilaterally and equal. No wheezes rales or rhonchi. HEART: Regular rate and rhythm without murmurs ABDOMEN: Soft, nontender, hyperactive bowel sounds. No guarding, no rebound. No masses appreciated. EXTREMITIES: Normal range of motion, no pitting or edema. No cyanosis. NEUROLOGICAL: No focal neurological deficits. Moves all extremities spontaneously and on command. PSYCH: Normal mood, normal affect. SKIN: Warm, Dry, normal turgor, no rashes or lesions noted. Course - Vital Signs Vital signs: Temp Pulse Resp BP Pulse Ox 97.9 F 97 20 148/85 H 98 03/20/19 22:09 03/20/19 22:09 03/20/19 22:09 03/20/19 22:09 03/20/19 22:09 - Laboratory Result Diagrams: 03/20/19 23:44 03/20/19 23:44 Laboratory results interpreted by me: 03/20/19 23:44 Urine Ketones TRACE H Urine Urobilinogen 4.0 H - Transfer of Care Notes: 03/21/19 03:43 Discussed with patient that this is probably a viral illness she needs to drink Gatorade mixed with water advance to a BRAT diet return if worse Discharge - Discharge Clinical Impression: Nausea vomiting and diarrhea Condition: Good Disposition: HOME, SELF-CARE Instructions: Vomiting ([facility]), Diarrhea, Nonspecific ([facility]) Additional Instructions: Take Gatorade mixed with water advanced to a diet of bananas rice applesauce or toast return if worse. Prescriptions: Dicyclomine HCl [Bentyl 20 mg Tablet] 20 mg PO QID #40 tablet Ondansetron [Zofran Odt 4 mg Tablet] 1 - 2 tab PO Q4H PRN #15 tab.rapdis PRN Reason: For Nausea/Vomiting Forms: Return to Work
[2019-03-21 04:31] VITALS: BP 127/72
== END 2019-03-21 04:31 | disposition home or self-care (01) ==
LOC: ER 22:00
DX: R11.2 Nausea with vomiting, unspecified (principal); R19.7 Diarrhea, unspecified; R10.9 Unspecified abdominal pain; F17.200 Nicotine dependence, unspecified, uncomplicated; I10 Essential (primary) hypertension
CPT/HCPCS: 36415; 84703; 85025; 80053; S0119; 81001

== ENCOUNTER 2019-07-22 11:53 | Emergency (ER) | payer SELFPAY ==
[2019-07-22 14:03] VITALS: BP 148/91
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
--- NOTE | 2019-07-22 15:03 | RADIOLOGY REPORT (SQ) ---
EXAM DESCRIPTION: FINGER LEFT COMPLETED DATE/TIME: 07/22/2019 2:24 pm REASON FOR STUDY: Left middle finger injury COMPARISON: None. NUMBER OF VIEWS: Three views. TECHNIQUE: AP, lateral, and oblique images acquired of the left third finger. LIMITATIONS: None. FINDINGS: MINERALIZATION: Normal. BONES: No acute fracture or dislocation. No worrisome bone lesions. SOFT TISSUES: No soft tissue swelling. No foreign body. OTHER: No other significant finding. IMPRESSION: NO RADIOGRAPHIC EVIDENCE OF ACUTE INJURY. TECHNICAL DOCUMENTATION: JOB ID: [id number] [employer]- All Rights Reserved Reading location - IP/workstation name: [email or web address]
== END 2019-07-22 15:44 | disposition home or self-care (01) ==
LOC: ER 11:53
DX: S69.92XA Unspecified injury of left wrist, hand and finger(s), initial encounter (principal); Y04.0XXA Assault by unarmed brawl or fight, initial encounter; F17.200 Nicotine dependence, unspecified, uncomplicated; E78.00 Pure hypercholesterolemia, unspecified; I10 Essential (primary) hypertension; Z90.49 Acquired absence of other specified parts of digestive tract
CPT/HCPCS: 99283

== ENCOUNTER 2019-09-04 18:18 | Emergency (ER) | payer SELFPAY ==
[2019-09-04 18:27] VITALS: BP 151/76
[2019-09-04] MEDS ORDERED: DEXAMETHASONE SOD PHOS INJ 10 MG/1 ML VIAL IM ONE (18:35)
[2019-09-04] MEDS ORDERED: KETOROLAC TROMETHAMINE 60 MG/2 ML SDV IM ONE (18:35)
[2019-09-04] MEDS ORDERED: METHOCARBAMOL 500 MG TABLET PO ONE (18:38)
--- NOTE | 2019-09-04 18:39 | ER Document Report ---
ED Neck/Back Problem - General Chief Complaint: Back Pain Stated Complaint: BACK PAIN Time Seen by Provider: 09/04/19 18:24 Primary Care Provider: JAYLEEN FIGUEROA MD [ASSOCIATE] - Follow up as needed Mode of Arrival: Ambulatory Information source: Patient Notes: 34-year-old female presents to ED for complaint of low back pain since Sunday. She states Sunday night she unloaded a truck with some heavy bags of dog food and started having muscle spasms on the left side of her lower back on Sunday. She states she took Aleve last night and she took ibuprofen at 11:00 this morning. She states her pain is continuing to be sharp mainly to the left side. She is alert oriented respirations regular nonlabored speaking in full sentences walks with some pain. She has no signs or symptoms of cauda equina, she has no loss of control of bowel bladder, no saddle anesthesia, no loss of control or sensation to the lower extremities. She has no point tenderness to t he SI joint on either side. TRAVEL OUTSIDE OF THE [place] IN LAST 30 DAYS: No - HPI Patient complains to provider of: Pain, Injury, Lower back Onset: Other - Sunday Where: Indoors, Work Onset: Gradual Timing: Still present Quality of pain: Sharp, Other - Spasms Severity: Moderate Pain Level: 4 Context: Lifting, Turning Recent injury: Possibly Associated symptoms: Like prior neck/back pain, Lower back pain. denies: Incontinence, Motor loss, Numbness/tingling, Radiation to arm, Radiation to chest, Radiation to leg, Sweaty, Unable to urinate Exacerbated by: Movement of trunk, Sitting position Relieved by: Nothing Similar symptoms previously: Yes Recently seen / treated by doctor: No - Related Data Allergies/Adverse Reactions: Coconut * [Coconut] Allergy (Verified 09/04/19 18:23) Hives morphine [Morphine] Adverse Reaction (Intermediate, Verified 09/04/19 18:23) NIGHTMARES; N/V Shellfish * [Shellfish] Adverse Reaction (Intermediate, Verified 09/04/19 18:23) BURNING SKIN SENSATION; RED SKIN SILK TAPE Allergy (Intermediate, Uncoded 09/04/19 18:23) All Tape Allergy (Uncoded 09/04/19 18:23) Past Medical History - General Information source: Patient - Social History Smoking Status: Current Every Day Smoker Cigarette use (# per day): Yes - Half pack a day Chew tobacco use (# tins/day): No Smoking Education Provided: Yes - 4 minutes Frequency of alcohol use: None Drug Abuse: None Occupation: [employer] Lives with: Alone Family History: Arthritis, CAD, DM, Hyperlipidemia, Hypertension, Thyroid Disfunction Patient has suicidal ideation: No Patient has homicidal ideation: No - Past Medical History Cardiac Medical History: Reports: Hx Hypercholesterolemia, Hx Hypertension - intra cranial Pulmonary Medical History: Reports: Hx Bronchitis EENT Medical History: Reports: None Neurological Medical History: Reports: Hx Seizures Endocrine Medical History: Reports: None Renal/ Medical History: Reports: Hx Pelvic Inflammatory Disease Malignancy Medical History: Reports: None GI Medical History: Reports: Hx Crohn's Disease, Hx Gastroesophageal Reflux Disease, Hx Irritable Bowel Musculoskeletal Medical History: Reports Hx Musculoskeletal Deformity, Reports Hx Musculoskeletal Trauma Skin Medical History: Reports None Psychiatric Medical History: Reports: Hx Obsessive Compulsive Disorder Traumatic Medical History: Reports: None Infectious Medical History: Reports: None Past Surgical History: Reports: Hx Adenoidectomy, Hx Appendectomy, Hx Cholecystectomy, Hx Gynecologic Surgery - LEEP, Hx Oral Surgery - [place] teeth, Hx Orthopedic Surgery - Bunion to foot and nerve removal, Hx Tonsillectomy - Immunizations Immunizations up to date: Yes Hx Diphtheria, Pertussis, Tetanus Vaccination: No Review of Systems - Review of Systems Constitutional: No symptoms reported EENT: No symptoms reported Cardiovascular: No symptoms reported Respiratory: No symptoms reported Gastrointestinal: No symptoms reported Genitourinary: No symptoms reported Female Genitourinary: No symptoms reported Musculoskeletal: Back pain, Muscle pain, Muscle stiffness Skin: No symptoms reported Hematologic/Lymphatic: No symptoms reported Neurological/Psychological: No symptoms reported -: Yes All other systems reviewed and negative Physical Exam - Vital signs Vitals: Temp Pulse Resp BP Pulse Ox 98.4 F 102 H 16 151/76 H 99 09/04/19 18:22 09/04/19 18:22 09/04/19 18:22 09/04/19 18:22 09/04/19 18:22 Interpretation: Normal - General General appearance: Appears well, Alert - HEENT Head: Normocephalic, Atraumatic Eyes: Normal Pupils: PERRL - Respiratory Respiratory status: No respiratory distress Chest status: Nontender Breath sounds: Normal Chest palpation: Normal - Cardiovascular Rhythm: Regular Heart sounds: Normal auscultation Murmur: No - Abdominal Inspection: Normal Distension: No distension Bowel sounds: Normal Tenderness: Nontender Organomegaly: No organomegaly - Back Back: Normal, Tender. No: Deformity/step-off, CVA tenderness, Vertebra tenderness, Scars, Scoliosis, Wounds Notes: No signs or symptoms of cauda equina, no loss control of bowel bladder, no saddle anesthesia, no loss of control or sensation to the lower extremities. - Extremities General upper extremity: Normal inspection, Nontender, Normal color, Normal ROM, Normal temperature General lower extremity: Normal inspection, Nontender, Normal color, Normal ROM, Normal temperature, Normal weight bearing. No: Pravin's sign - Neurological Neuro grossly intact: Yes Cognition: Normal Orientation: AAOx4 [place] Coma Scale Eye Opening: Spontaneous [place] Coma Scale Verbal: Oriented [place] Coma Scale Motor: Obeys Commands [place] Coma Scale Total: 15 Speech: Normal Motor strength normal: LUE, RUE, LLE, RLE Sensory: Normal - Psychological Associated symptoms: Normal affect, Normal mood - Skin Skin Temperature: Warm Skin Moisture: Dry Skin Color: Normal Course - Re-evaluation Re-evalutation: 09/04/19 18:49 Patient was treated with Toradol 60 mg IM, Decadron 10 mg IM, and Robaxin 500 mg p.o. for her back pain to the lower left back. She was also given a ice pack the area that was painful. She was discharged home with a prescription for Robaxin and instructions for ice packs warm packs and back exercises. She was instructed to please follow-up with the back specialist. Patient was able to verbalize understanding and agreement with treatment plan she was able to walk out much easier than she walked in. - Vital Signs Vital signs: Temp Pulse Resp BP Pulse Ox 98.4 F 102 H 16 151/76 H 99 09/04/19 18:22 09/04/19 18:22 09/04/19 18:22 09/04/19 18:22 09/04/19 18:22 Discharge - Discharge Clinical Impression: Low back pain Qualifiers: Chronicity: acute Back pain laterality: left Sciatica presence: without sciatica Qualified Code(s): M54.5 - Low back pain Condition: Stable Disposition: HOME, SELF-CARE Additional Instructions: LOW BACK PAIN: Three out of every four people will have an episode of disabling back pain during their lifetime. Most commonly the pain is due to straining of the muscles and ligaments in the low back. Usual treatment includes: (1) Rest on a firm surface. Avoid lying on your stomach. (2) Ice pack the painful area. After a few days, gentle heat may be used intermittently to relax the area, or ice packs can be continued. (3) Medication may be needed -- muscle relaxers and antiinflammatory medicines are commonly used. (4) As the back improves, exercises are prescribed to strengthen the back and abdominal muscles. Your doctor will advise you on the proper care for your back at each stage in your recovery. You may be better in a few days -- or healing may take several weeks. If new symptoms of a "herniated disc" (radiation of pain, numbness, or tingling down the back of the leg or weakness in the leg) occur, you should be re-examined. Further testing may be necessary. Toradol Injection You have been given an injection of ketorolac tromethamine (Toradol). This is an excellent, safe drug for pain control. It also has potent antiinflammatory action. You should have significant pain relief within about one hour. Toradol is not addicting and is non-sedating. It does not interfere with driving or work. Call or return if you develop itching, hives, shortness of breath, or rash. STEROID MEDICATION: You have been given an injection of medicine of the cortisone/steroid class. This medication is used to control inflammation or allergy. It is often continued as a pill for a short period of time, until the acute process subsides. There are usually no side effects from short-term use of cortisone-like medications. Some persons feel an increased sense of well-being and are not sleepy at bedtime. Long-term use of cortisone medications is best avoided, unless required for a severe condition. If your condition does not remit, or relapses after the course of corticosteroid medication, you should consult your physician. Stretching Exercises for the Back The physician has recommended that you begin stretching exercises for your back. These are often used even while the back is painful. However, you should notify the physician if the activities seem to increase your pain. PELVIC TILT: Lie flat on your back with knees bent. Tighten your stomach and buttock muscles so it flattens your lower back against the floor. Hold 10 seconds. Repeat 10 times, twice daily. KNEE RAISE: Lying on the back with knees bent, raise one knee to your chest, then the other. Hold both knees against the chest 10 seconds, then lower one knee at a time. Repeat 10 times, twice daily. PARTIAL TRUNK RAISE: Lie face down, arms at your sides. Keeping your waist on the floor, use your arms raise your chest up. Support yourself on your elbows for 30 seconds. Repeat twice daily, increasing the time to two minutes as you recover. MUSCLE RELAXERS: Muscle relaxing medications are usually prescribed for acute muscle spasm or injury to the neck and back. They are often combined with antiinflammatory pain medication for increased relief. You may stop the muscle relaxer when the pain and stiffness have improved. Start the medication again if spasms recur. Muscle relaxers may cause drowsiness, especially with the first dose. Do not operate machinery or drive while under the effects of the medication. Most muscle relaxers last up to 24 hours. Do not combine the medication with alcohol. ICE PACKS: Apply ice packs frequently against the painful area. Many different schedules are recommended, such as "20 minutes on, 20 minutes off" or "one hour ice, two hours rest." If you need to work, you may need to go longer between ice treatments. You should plan to have the area ice packed AT LEAST one fourth of the time. The ice should be applied over the wrap, tape, or splint, or over a layer of cloth -- not directly against the skin. Some ice bags have a built-in cloth and can be put directly on the skin. WARM PACKS: After approximately two days, apply gentle heat (such as a heating pad or hot water bottle) for about 20 to 30 minutes about every two hours -- at least four times daily. Warmth and elevation will help you make a more rapid recovery, and will ease the pain considerably. Do not use HOT heat, and never apply heat for longer than 30 minutes. The continuous heat can invisibly damage skin and muscles -- even when no burn is seen on the surface. Damaged muscles can make you MORE sore. FOLLOW-UP CARE: If you have been referred to a physician for follow-up care, call the physicians office for an appointment as you were instructed or within the next two days. If you experience worsening or a significant change in your symptoms, notify the physician immediately or return to the Emergency Department at any time for re-evaluation. Prescriptions: Naproxen 500 mg PO BID #20 tablet Methocarbamol [Robaxin 500 mg Tablet] 500 mg PO BID #20 tablet Forms: Elevated Blood Pressure, Smoking Cessation Education, Parent Work Note, Return to Work Referrals: JAYLEEN FIGUEROA MD [ASSOCIATE] - Follow up as needed
== END 2019-09-04 18:46 | disposition home or self-care (01) ==
LOC: ER 18:18
DX: M54.5 Low back pain (principal); M62.830 Muscle spasm of back; X50.0XXA Overexertion from strenuous movement or load, initial encounter; Y93.89 Activity, other specified; Y99.0 Civilian activity done for income or pay; G93.2 Benign intracranial hypertension; F17.210 Nicotine dependence, cigarettes, uncomplicated; Z71.6 Tobacco abuse counseling; Z91.018 Allergy to other foods; Z91.048 Other nonmedicinal substance allergy status
CPT/HCPCS: 99283; 96372; J1885; J1100

== ENCOUNTER 2019-09-29 19:37 | Emergency (ER) | payer SELFPAY ==
[2019-09-29] MEDS ORDERED: ONDANSETRON HCL INJ/PF 4 MG/2 ML SDV IV ONE (21:14)
[2019-09-29] MEDS ORDERED: HYDROMORPHONE HCL INJ/PF 2 MG/ML AMPULE IV ONE (21:14)
--- NOTE | 2019-09-29 21:43 | EKG REPORT ---
SEVERITY:- NORMAL ECG - SINUS RHYTHM : Confirmed by: Monica Le MD 29-Sep-2019 21:41:58
--- NOTE | 2019-09-29 21:53 | ER Document Report ---
ED General - General Chief Complaint: Leg Pain Stated Complaint: LEFT LEG PAIN Time Seen by Provider: 09/29/19 20:36 TRAVEL OUTSIDE OF THE [place] IN LAST 30 DAYS: No - HPI Notes: Patient presents to the emergency department for evaluation of left leg pain. It started on September 03. She was seen here, told it was a "muscle strain" and sent home. She states that since then her leg pain is gotten much worse. It starts in her lower back, goes into her left buttock, she is down her leg. She denies any bowel or bladder incontinence, no saddle anesthesia, no focal numbness or weakness. She puts her pain at a 10 out of 10. Is worsened by weightbearing. She is been taking Tylenol and ibuprofen at home, states she is had no relief. I asked her about her elevated heart rate. She states she believes it was just because she was in pain. She has no palpitations, no shortness of breath, no chest pain. - Related Data Allergies/Adverse Reactions: Coconut * [Coconut] Allergy (Verified 09/04/19 18:23) Hives morphine [Morphine] Adverse Reaction (Intermediate, Verified 09/04/19 18:23) NIGHTMARES; N/V Shellfish * [Shellfish] Adverse Reaction (Intermediate, Verified 09/04/19 18:23) BURNING SKIN SENSATION; RED SKIN SILK TAPE Allergy (Intermediate, Uncoded 09/04/19 18:23) All Tape Allergy (Uncoded 09/04/19 18:23) Past Medical History - General Information source: Patient - Social History Smoking Status: Current Some Day Smoker Family History: Arthritis, CAD, DM, Hyperlipidemia, Hypertension, Thyroid Disfunction Patient has suicidal ideation: No Patient has homicidal ideation: No - Past Medical History Cardiac Medical History: Reports: Hx Hypercholesterolemia, Hx Hypertension - intra cranial Denies: Hx Heart Attack Pulmonary Medical History: Reports: Hx Bronchitis Denies: Hx Asthma, Hx COPD, Hx Pneumonia, Hx Tuberculosis Neurological Medical History: Reports: Hx Seizures Renal/ Medical History: Reports: Hx Pelvic Inflammatory Disease. Denies: Hx Peritoneal Dialysis GI Medical History: Reports: Hx Crohn's Disease, Hx Gastroesophageal Reflux Disease, Hx Irritable Bowel. Denies: Hx Hiatal Hernia, Hx Ulcer Musculoskeletal Medical History: Denies Hx Arthritis, Reports Hx Musculoskeletal Deformity, Reports Hx Musculoskeletal Trauma Psychiatric Medical History: Reports: Hx Obsessive Compulsive Disorder Denies: Hx Depression Past Surgical History: Reports: Hx Adenoidectomy, Hx Appendectomy, Hx Cholecystectomy, Hx Gynecologic Surgery - LEEP, Hx Oral Surgery - [place] teeth, Hx Orthopedic Surgery - Bunion to foot and nerve removal, Hx Tonsillectomy. Denies: Hx Open Heart Surgery - Immunizations Immunizations up to date: Yes Hx Diphtheria, Pertussis, Tetanus Vaccination: No Review of Systems - Review of Systems Musculoskeletal: See HPI Physical Exam - Vital signs Vitals: Temp Pulse Resp BP Pulse Ox 98.4 F 143 H 22 H 152/99 H 96 09/29/19 19:51 09/29/19 19:51 09/29/19 19:51 09/29/19 19:51 09/29/19 19:51 - Notes Notes: This is a 34-year-old female who appears her stated age in a mild amount of distress. She is clearly uncomfortable, any movement makes her pain increase. Vital signs reviewed, please refer to chart. Head is normocephalic, atraumatic. Pupils equal round, reactive to light. Neck is supple without meningismus. Heart is regular rate and rhythm. Lungs are clear to auscultation bilaterally. Abdomen is soft, nontender, normoactive bowel sounds throughout. Extremities without cyanosis, clubbing. Left posterior calf is tender. Peripheral pulses a re equal. Skin is warm and dry. Examination of the spine yields no midline tenderness or step-off. She has paraspinal musculature tenderness at L5-S1 on the left, piriformis tenderness to palpation. Unable to perform straight leg raise secondary to pain, unable to perform strength testing secondary to pain. Patellar and Achilles reflexes are 1+ bilaterally. Course - Re-evaluation Re-evalutation: 09/29/19 21:58 Patient presents to the emergency department for evaluation of left leg pain. Her findings are most consistent with sciatica, but she was markedly tachycardic on arrival. EKG was obtained, and by then her heart rate was normal. She has no palpitations, no chest pain, no dyspnea. She has no risk factors for p ulmonary embolus. I did order a venous Doppler which was found to be negative. Blood work is pending. This is likely sciatica, will treat as such, awaiting labs. Patient is stable, we will continue to monitor. 09/30/19 00:10 Patient's laboratory investigations were largely unremarkable, urinalysis failed to reveal any signs of infection. She has a negative venous Doppler. We will send the patient home with steroids for likely sciatica, as well as muscle relaxers. She is to follow-up with primary care, return to the ER with worsening or new concerning symptoms of any sort. - Vital Signs Vital signs: Temp Pulse Resp BP Pulse Ox 97.5 F 78 16 133/77 H 100 09/29/19 23:25 09/29/19 23:25 09/29/19 23:25 09/29/19 23:25 09/29/19 23:25 - Laboratory Result Diagrams: 09/29/19 22:12 09/29/19 22:12 Laboratory results interpreted by me: 09/29/19 09/29/19 22:12 23:33 WBC 10.8 H MCH 33.9 H Urine Protein 30 H Urine Bilirubin SMALL H Urine Urobilinogen 4.0 H - EKG Interpretation by Me Additional EKG results interpreted by me: 09/30/19 00:13 Sinus mechanism with a rate of 92 bpm. Normal axis and intervals. No acute ST changes concerning for ischemia or infarction. Discharge - Discharge Clinical Impression: Sciatica Qualifiers: Laterality: left Qualified Code(s): M54.32 - Sciatica, left side Condition: Stable Disposition: HOME, SELF-CARE Instructions: Sciatica (OM) Additional Instructions: Rest. Take medications as prescribed, being sure to take all of the prednisone until gone. Muscle relaxer as needed for severe pain. Follow-up with primary care this week. Return to the emergency department with worsening or new concerning symptoms of any sort. Prescriptions: Prednisone [Deltasone 20 mg Tablet] See Protocol PO DAILY 5 Days #20 tablet Methocarbamol [Robaxin-750] 750 mg PO TID PRN #21 tablet PRN Reason:
[2019-09-29 22:26] LABS: ABSOLUTE BASOPHILS # (AUTO) 0.1 10^3/uL (0.0-0.2); ABSOLUTE EOSINOPHILS # (AUTO) 0.3 10^3/uL (0.0-0.6); ABSOLUTE LYMPHOCYTES (AUTO) 3.6 10^3/uL (0.5-4.7); ABSOLUTE MONOCYTES (AUTO) 0.6 10^3/uL (0.1-1.4); ABSOLUTE NEUT (AUTO) 6.2 10^3/uL (1.7-8.2); BASOPHILS % (AUTO) 1.3 % (0-2); EOSINOPHILS % (AUTO) 2.7 % (0-6); HEMATOCRIT 39.6 % (36.0-47.0); HEMOGLOBIN 13.8 g/dL (12.0-15.5); LYMPHOCYTES % (AUTO) 33.3 % (13-45); MEAN CORPUSCULAR HEMOGLOBIN 33.9 pg (27.0-33.4); MEAN CORPUSCULAR HGB CONC 34.9 g/dL (32.0-36.0); MEAN CORPUSCULAR VOLUME 97 fl (80-97); MONOCYTES % (AUTO) 5.7 % (3-13); PLATELET COUNT 302 10^3/uL (150-450); RED BLOOD COUNT 4.08 10^6/uL (3.72-5.28); TOTAL CELLS COUNTED % (AUTO) 100 %; WHITE BLOOD COUNT 10.8 10^3/uL (4.0-10.5)
[2019-09-29 22:46] LABS: ALBUMIN 3.9 g/dL (3.5-5.0); ALKALINE PHOSPHATASE 71 U/L (38-126); ANION GAP 5 (5-19); ASPARTATE AMINO TRANSFERASE 19 U/L (14-36); BILIRUBIN,TOTAL 0.2 mg/dL (0.2-1.3); BLOOD UREA NITROGEN 15 mg/dL (7-20); CALCIUM 9.3 mg/dL (8.4-10.2); CARBON DIOXIDE 27 mmol/L (22-30); CHLORIDE 106 mmol/L (98-107); GLUCOSE 95 mg/dL (75-110); POTASSIUM 4.6 mmol/L (3.6-5.0); TOTAL PROTEIN 6.7 g/dL (6.3-8.2)
--- NOTE | 2019-09-29 22:48 | RADIOLOGY REPORT (SQ) ---
EXAM DESCRIPTION: US EXTREMITY VEINS UNILATERAL LEFT CLINICAL HISTORY: 34 years, Female, pain left leg / eval for DVT COMPARISON: None. FINDINGS: Duplex imaging of the deep venous system of the left lower extremity was performed with visualization from the common femoral vein into the calf. There is normal compression, augmentation and color flow without visualized thrombus. Patent greater saphenous vein as imaged. IMPRESSION: No left lower extremity DVT.
[2019-09-29 23:27] VITALS: BP 133/77
[2019-09-29 23:53] LABS: APPEARANCE,URINE SLIGHTLY-CLOUDY; BILIRUBIN,URINE SMALL (NEGATIVE); COLOR,URINE YELLOW; GLUCOSE, URINE NEGATIVE (NEGATIVE); KETONES,URINE NEGATIVE (NEGATIVE); LEUKOCYTE ESTERASE,URINE NEGATIVE (NEGATIVE); NITRITE,URINE NEGATIVE (NEGATIVE); PROTEIN,URINE 30 mg/dL (NEGATIVE)
== END 2019-09-30 00:27 | disposition home or self-care (01) ==
LOC: ER 19:37
DX: M54.32 Sciatica, left side (principal); M79.605 Pain in left leg; M54.5 Low back pain; Z88.8 Allergy status to other drugs, medicaments and biological substances; F17.200 Nicotine dependence, unspecified, uncomplicated; I10 Essential (primary) hypertension
CPT/HCPCS: 93005; 99284; 96374; 96375; 36415; 84703; 85025; 80053; 81001; 93971; 93010; J1170; J2405

== ENCOUNTER 2019-10-17 10:43 | Emergency (ER) | payer SELFPAY ==
[2019-10-17 10:50] VITALS: BP 148/112
[2019-10-17] MEDS ORDERED: ERYTHROMYCIN 0.5% OPH OINTMENT 3.5 GM TUBE OS ONE (10:56)
--- NOTE | 2019-10-17 11:01 | ER Document Report ---
HPI - HPI Time Seen by Provider: 10/17/19 10:52 Pain Level: 4 Notes: Otherwise healthy 34-year-old female presenting with pain to her left upper eyelid. She reports this is been ongoing for last 2 days. She also reports there is been swelling to the upper lid. She states she has tried putting warm compress without relief. She denies the use of any contact lenses. Denies any change in vision. - CONSTITUTIONAL Constitutional: DENIES: Fever, Chills - EENT EENT: REPORTS: Eye problems - REPRODUCTIVE Reproductive: DENIES: : Past Medical History - General Information source: Patient - Social History Smoking Status: Current Every Day Smoker Frequency of alcohol use: None Drug Abuse: None Family History: Arthritis, CAD, DM, Hyperlipidemia, Hypertension, Thyroid Disfunction Patient has homicidal ideation: No - Past Medical History Cardiac Medical History: Reports: Hx Hypercholesterolemia, Hx Hypertension - intra cranial Denies: Hx Heart Attack Pulmonary Medical History: Reports: Hx Bronchitis Denies: Hx Asthma, Hx COPD, Hx Pneumonia, Hx Tuberculosis Neurological Medical History: Reports: Hx Seizures Renal/ Medical History: Reports: Hx Pelvic Inflammatory Disease. Denies: Hx Peritoneal Dialysis GI Medical History: Reports: Hx Crohn's Disease, Hx Gastroesophageal Reflux Disease, Hx Irritable Bowel. Denies: Hx Hiatal Hernia, Hx Ulcer Musculoskeletal Medical History: Denies Hx Arthritis, Reports Hx Musculoskeletal Deformity, Reports Hx Musculoskeletal Trauma Psychiatric Medical History: Reports: Hx Obsessive Compulsive Disorder Denies: Hx Depression Past Surgical History: Reports: Hx Adenoidectomy, Hx Appendectomy, Hx Cholecystectomy, Hx Gynecologic Surgery - LEEP, Hx Oral Surgery - [place] teeth, Hx Orthopedic Surgery - Bunion to foot and nerve removal, Hx Tonsillectomy. Denies: Hx Open Heart Surgery - Immunizations Immunizations up to date: Yes Hx Diphtheria, Pertussis, Tetanus Vaccination: No Vertical Provider Document - CONSTITUTIONAL Notes: PHYSICAL EXAMINATION: GENERAL: Well-appearing, well-nourished and in no acute distress. HEAD: Atraumatic, normocephalic. EYES: Pupils equal round extraocular movements intact, conjunctiva are normal, stye noted to left upper eyelid near the inner canthus. ENT: Nares patent NECK: Normal range of motion LUNGS: No respiratory distress Musculoskeletal: Normal range of motion NEUROLOGICAL: Normal speech, normal gait. PSYCH: Normal mood, normal affect. SKIN: Warm, Dry, normal turgor, no rashes or lesions noted. - INFECTION CONTROL TRAVEL OUTSIDE OF THE [place] IN LAST 30 DAYS: No Course - Re-evaluation Re-evalutation: Patient has a stye to left upper eye. She has no visual changes. She will be started on antibiotic ointment and will follow-up with ophthalmology. - Vital Signs Vital signs: Temp Pulse Resp BP Pulse Ox 99.2 F 108 H 16 148/112 H 96 10/17/19 10:50 10/17/19 10:47 10/17/19 10:47 10/17/19 10:47 10/17/19 10:47 Discharge - Discharge Clinical Impression: Hordeolum Qualifiers: Hordeolum type: externum Laterality: left Eyelid: upper Qualified Code(s): H00.014 - Hordeolum externum left upper eyelid Condition: Stable Disposition: HOME, SELF-CARE Additional Instructions: Sty Your examination reveals that you have a sty. This is an infection of a hair follicle in the eyelid. As the infection progresses, it forms an abscess along the edge of the eyelid. A sty causes a lot of swelling and tenderness. As the body fights the infection, a lump forms. The knot slowly goes away over a couple of weeks. Treatment includes applying warm compresses to the eye for 10 to 15 minutes every two or three hours. Usually, the infection will drain from the abscess spontaneously, however, some sties require surgical drainage. You may be given antibiotic eye drops/ointment to prevent the infection from spreading to the surface of the eye. If the doctor is concerned that the infection is severe, you may be given antibiotics by mouth or shot. Call the doctor at once if vision decreases, if swelling becomes severe, or if eye pain becomes severe. See the doctor for follow-up should you fail to improve as expected. Please apply a thin ribbon of the ointment into the left eye 4 times daily for the next 1 to 2 weeks. Then apply it to the upper lid once daily at bedtime for 1 week. 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 Prescriptions: Erythromycin Base [Erythromycin Oph 1 Gm Oint Ud] 1 applic OD QID #1 tube Forms: Return to Work Referrals: [facility] [Provider Group] - Follow up as needed
== END 2019-10-17 11:17 | disposition home or self-care (01) ==
LOC: ER 10:43
DX: H00.014 Hordeolum externum left upper eyelid (principal); H57.12 Ocular pain, left eye; F17.200 Nicotine dependence, unspecified, uncomplicated; E78.00 Pure hypercholesterolemia, unspecified; I10 Essential (primary) hypertension; Z90.49 Acquired absence of other specified parts of digestive tract
CPT/HCPCS: 99283; J3490

== ENCOUNTER 2019-11-25 17:00 | Emergency (ER) | payer OTHER ==
[2019-11-25 17:13] VITALS: BP 152/104
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
--- NOTE | 2019-11-25 18:07 | RADIOLOGY REPORT (SQ) ---
EXAM DESCRIPTION: SHOULDER LEFT 2 OR MORE VIEWS IMAGES COMPLETED DATE/TIME: 11/25/2019 4:48 pm REASON FOR STUDY: pain. Injured at work. Diffuse pain. COMPARISON: None. NUMBER OF VIEWS: Three views. TECHNIQUE: Internal rotation, external rotation, and Y view images acquired of the left shoulder. LIMITATIONS: None. FINDINGS: MINERALIZATION: Normal. BONES: No acute fracture. No worrisome bone lesions. JOINTS: No dislocation. VISUALIZED LUNGS AND RIBS: No pneumothorax. No rib fracture. SOFT TISSUES: No radiopaque foreign body. OTHER: No other significant finding. IMPRESSION: NEGATIVE STUDY OF THE LEFT SHOULDER. NO RADIOGRAPHIC EVIDENCE OF ACUTE INJURY. TECHNICAL DOCUMENTATION: JOB ID: [id number] 2010 [employer]- All Rights Reserved Reading location - IP/workstation name: [email or web address]
== END 2019-11-25 19:00 | disposition home or self-care (01) ==
LOC: ER 17:00
DX: S40.012A Contusion of left shoulder, initial encounter (principal); M25.512 Pain in left shoulder; W51.XXXA Accidental striking against or bumped into by another person, initial encounter; I10 Essential (primary) hypertension
CPT/HCPCS: 99283

== ENCOUNTER → 2020-01-01 | Outpatient (CLI) | payer OTHER ==
--- NOTE | 2020-01-01 15:45 | RADIOLOGY REPORT (SQ) ---
EXAM DESCRIPTION: FOOT LEFT COMPLETE IMAGES COMPLETED DATE/TIME: 01/01/2020 12:22 pm REASON FOR STUDY: R22.42, M79.672 COMPARISON: 10/03/2018 NUMBER OF VIEWS: Three views. TECHNIQUE: AP, lateral and oblique with weight bearing radiographic images acquired of the left johnathon t. LIMITATIONS: None. FINDINGS: MINERALIZATION: Normal. BONES: Bunionectomy and osteotomy head of 1st metatarsal. Metallic pins in appropriate position. JOINTS: No erosions. No zora-articular osteopenia. No chondrocalcinosis. SOFT TISSUES: No swelling. No calcifications. OTHER: No other significant finding. IMPRESSION: Postsurgical changes 1st metatarsophalangeal joint. No acute findings. TECHNICAL DOCUMENTATION: JOB ID: [id number] 2010 [employer]- All Rights Reserved Reading location - IP/workstation name: [email or web address]
== END ==
LOC: RAD 12:03
PROVIDERS: ATTEND Podiatrist Foot & Ankle Surgery
DX: M79.672 Pain in left foot (principal); R22.42 Localized swelling, mass and lump, left lower limb

== ENCOUNTER → 2020-01-23 | Outpatient (CLI) | payer OTHER ==
[2020-01-23 13:34] LABS: ABSOLUTE EOSINOPHILS # (AUTO) 0.3 10^3/uL (0.0-0.6); ABSOLUTE LYMPHOCYTES (AUTO) 3.2 10^3/uL (0.5-4.7); ABSOLUTE MONOCYTES (AUTO) 0.5 10^3/uL (0.1-1.4); BASOPHILS % (AUTO) 0.4 % (0-2); EOSINOPHILS % (AUTO) 2.4 % (0-6); HEMATOCRIT 39.5 % (36.0-47.0); HEMOGLOBIN 13.9 g/dL (12.0-15.5); LYMPHOCYTES % (AUTO) 28.9 % (13-45); MEAN CORPUSCULAR HEMOGLOBIN 33.2 pg (27.0-33.4); MEAN CORPUSCULAR HGB CONC 35.1 g/dL (32.0-36.0); MEAN CORPUSCULAR VOLUME 95 fl (80-97); MONOCYTES % (AUTO) 4.7 % (3-13); PLATELET COUNT 315 10^3/uL (150-450); RED BLOOD COUNT 4.18 10^6/uL (3.72-5.28); RED CELL DISTRIBUTION WIDTH 13.5 % (11.5-14.0); SEGMENTED NEUTROPHILS % (AUTO) 63.6 % (42-78); TOTAL CELLS COUNTED % (AUTO) 100 %; WHITE BLOOD COUNT 10.9 10^3/uL (4.0-10.5)
[2020-01-23 14:06] LABS: ALBUMIN 4.4 g/dL (3.5-5.0); ALKALINE PHOSPHATASE 75 U/L (38-126); ANION GAP 9 (5-19); ASPARTATE AMINO TRANSFERASE 24 U/L (14-36); BILIRUBIN,DIRECT 0.1 mg/dL (0.0-0.4); BILIRUBIN,TOTAL 0.4 mg/dL (0.2-1.3); BLOOD UREA NITROGEN 12 mg/dL (7-20); CALCIUM 9.6 mg/dL (8.4-10.2); CARBON DIOXIDE 27 mmol/L (22-30); CHLORIDE 104 mmol/L (98-107); GLUCOSE 89 mg/dL (75-110); POTASSIUM 4.6 mmol/L (3.6-5.0); TOTAL PROTEIN 7.4 g/dL (6.3-8.2)
== END ==
LOC: OD 12:45
PROVIDERS: ATTEND Physician Assistant
DX: R11.2 Nausea with vomiting, unspecified (principal)
CPT/HCPCS: 36415; 80053; 83690; 84703; 85025

== ENCOUNTER 2020-03-02 08:44 | Outpatient (CLI) | payer OTHER ==
[~2020-03-02 08:44] MED LIST: FERUMOXYTOL (NON-ESRD) 510 MG/NS 100 ML IV PRN; NORMAL SALINE 250 ML IV PRN
[2020-03-02 08:55] VITALS: BP 153/98
== END 2020-03-02 10:00 | disposition home or self-care (01) ==
LOC: II 08:44 → 5TH 08:45 → II 10:00
PROVIDERS: ATTEND Internal Medicine
DX: D50.8 Other iron deficiency anemias (principal); K90.9 Intestinal malabsorption, unspecified
CPT/HCPCS: 96365; Q0138; J7050

== ENCOUNTER 2020-03-09 08:51 | Outpatient (CLI) | payer OTHER ==
[2020-03-09 08:59] VITALS: BP 138/86
== END 2020-03-09 10:00 | disposition home or self-care (01) ==
LOC: II 08:51 → 5TH 08:53 → II 10:00
PROVIDERS: ATTEND Internal Medicine
DX: D50.8 Other iron deficiency anemias (principal); K90.9 Intestinal malabsorption, unspecified
CPT/HCPCS: 96365; Q0138; J7050

== ENCOUNTER 2020-04-03 08:22 | Emergency (ER) | payer OTHER ==
--- NOTE | 2020-04-03 08:52 | ER Document Report ---
ED General - General Chief Complaint: Cough Stated Complaint: COUGH/SORE THROAT Time Seen by Provider: 04/03/20 08:51 Primary Care Provider: LOYD RIOS PA [NO LOCAL MD] - Follow up as needed TRAVEL OUTSIDE OF THE [place] IN LAST 30 DAYS: No - HPI Notes: 34-year-old female with a history of PCOS and IBS presents to the emergency room today for complaints of a sore throat, dry cough for the last 3 days. Reports she has had fevers of 99 F. Denies any chest pain, shortness of breath, nausea, vomiting, diarrhea, rashes, numbness or tingling down arms or legs. Has not tried any uehi-afr-[id number] medications for her symptoms besides OTC cough syrup. Denies any history of asthma. Patient states that she has been around a coworker who had a cold last week and he was coughing near her. Patient has not been tested for Covid and since December 2019. Denies being around any Covid positive for Covid exposed individuals. eating and drinking without any issues. Last menstrual cycle was March 10, 2020. Last bowel movement was yesterday. Denies fevers, chills, chest pain,palpitations, shortness of breath, dyspnea, nausea, vomiting, diarrhea, abdominal pain, hematuria,blurred vision, double vision, loss of vision, speech changes, LH, dizziness, syncope, headaches, wheezing, ST, URI, neck pain, weakness, bowel or bladder dysfunction, saddle anesthesia, numbness or tingling in bilateral upper or lower extremities equally, muscle paralysis, weakness in bilateral upper or lower extremities equally or rash. Denies IV drug use. - Related Data Allergies/Adverse Reactions: Coconut * [Coconut] Allergy (Unknown, Verified 03/01/20 08:17) Hives morphine [Morphine] Adverse Reaction (Intermediate, Verified 11/25/19 17:32) NIGHTMARES; N/V Shellfish * [Shellfish] Adverse Reaction (Intermediate, Verified 11/25/19 17:32) BURNING SKIN SENSATION; RED SKIN adhesive tape Adverse Reaction (Verified 03/01/20 08:16) Past Medical History - General Information source: Patient - Social History Smoking Status: Current Every Day Smoker Chew tobacco use (# tins/day): No Frequency of alcohol use: None Drug Abuse: None Family History: Arthritis, CAD, DM, Hyperlipidemia, Hypertension, Thyroid Disfunction - Past Medical History Cardiac Medical History: Reports: Hx Hypercholesterolemia, Hx Hypertension - intra cranial Denies: Hx Heart Attack Pulmonary Medical History: Reports: Hx Bronchitis Denies: Hx Asthma, Hx COPD, Hx Pneumonia, Hx Tuberculosis Neurological Medical History: Reports: Hx Seizures Renal/ Medical History: Reports: Hx Pelvic Inflammatory Disease. Denies: Hx Peritoneal Dialysis GI Medical History: Reports: Hx Crohn's Disease, Hx Gastroesophageal Reflux Disease, Hx Irritable Bowel. Denies: Hx Hiatal Hernia, Hx Ulcer Musculoskeletal Medical History: Denies Hx Arthritis, Reports Hx Musculoskeletal Deformity, Reports Hx Musculoskeletal Trauma Psychiatric Medical History: Reports: Hx Obsessive Compulsive Disorder Denies: Hx Depression Past Surgical History: Reports: Hx Adenoidectomy, Hx Appendectomy, Hx Cholecystectomy, Hx Gynecologic Surgery - LEEP, Hx Oral Surgery - [place] teeth, Hx Orthopedic Surgery - Bunion to foot and nerve removal, Hx Tonsillectomy. Denies: Hx Open Heart Surgery - Immunizations Immunizations up to date: Yes Hx Diphtheria, Pertussis, Tetanus Vaccination: No Review of Systems - Review of Systems Constitutional: No symptoms reported EENT: No symptoms reported Cardiovascular: No symptoms reported Respiratory: See HPI Gastrointestinal: No symptoms reported Genitourinary: No symptoms reported Female Genitourinary: No symptoms reported Musculoskeletal: No symptoms reported Skin: No symptoms reported Hematologic/Lymphatic: No symptoms reported Neurological/Psychological: No symptoms reported Physical Exam - Notes Notes: MEDICATIONS: I agree with the patient medications as charted by the RN. ALLERGIES: I agree with the allergies as charted by the RN. PAST MEDICAL HISTORY/PAST SURGICAL HISTORY: Reviewed and agree as charted by RN. SOCIAL HISTORY: Reviewed and agree as charted by RN. FAMILY HISTORY: No significant familial comorbid conditions directly related to patient complaint PHYSICAL EXAMINATION: GENERAL: Well-appearing, well-nourished and in no acute distress. HEAD: Atraumatic, normocephalic. EYES: Pupils equal round and reactive to light, extraocular movements intact, conjunctiva are normal. ENT: Nares patent, oropharynx clear without exudates. Moist mucous membranes. NECK: Normal range of motion, supple without lymphadenopathy LUNGS: Wheezing heard in bilateral upper lobes. Breathing treatment given, breath sounds clear to auscultation bilaterally and equal. No wheezes rales or rhonchi. HEART: Regular rate and rhythm without murmurs ABDOMEN: Soft, nontender, nondistended abdomen. No guarding, no rebound. No masses appreciated. Female : deferred Musculoskeletal: Normal range of motion, no pitting or edema. No cyanosis. NEUROLOGICAL: Cranial nerves grossly intact. Normal speech, normal gait. Normal sensory, motor exams PSYCH: Normal mood, normal affect. SKIN: Warm, Dry, normal turgor, no rashes or lesions noted. Dictation was performed using [employer] voice recognition software Course - Re-evaluation Re-evalutation: 04/03/20 10:38 Afebrile vital stable no distress. Nurses notes reviewed. Rapid strep, rapid flu and chest x-ray all unremarkable. Patient's wheezing did resolve after breathing treatment, breath sounds clear in all lobes after breathing treatment. Patient is a PUI, will be tested for Covid today. Discussed with her to self quarantine, wear mask, social distance until results of Covid tests are known. Work note has been given. Advised to use rescue inhaler as needed and to take her prednisone as directed. Suck on cough drops, gently ranchers. Use ocav-[id number]-[id number] cough syrups. After performing a Medical Screening Examination, I estimate there is LOW risk for ACUTE CORONARY SYNDROME, PULMONARY EMBOLI, RESPIRATORY FAILURE, SEPSIS OR MENINGITIS, thus I consider the discharge disposition reasonable. I have reevaluated this patient multiple times and no significant life threatening changes are noted. The patient and I have discussed the diagnosis and risks, and we agree with discharging home with close follow-up. We also discussed returning to the Emergency Department immediately if new or worsening symptoms occur. We have discussed the symptoms which are most concerning (e.g., changing or worsening pain, trouble swallowing or breathing, neck stiffness, fever) that necessitate immediate return. Discharge - Discharge Clinical Impression: Cough Condition: Stable Disposition: HOME, SELF-CARE Instructions: Sore Throat ([facility]), COVID-19 Guidance for Persons Under Investigation Additional Instructions: Your strep, your flu and your chest x-ray were normal today. You were given a breathing treatment to help with the wheezing. You will be sent home with a prescription for prednisone as well as a rescue inhaler. Please wash hands frequently, wear facemask, social distance until you get the results from your Covid testing done today. You can call the health department to find out the status of your Covid testing. Return immediately for any new or worsening symptoms. Follow up with primary care provider, call tomorrow to make followup appointment. Prescriptions: Albuterol Sulfate [Proair Respiclick] 90 mcg IH Q4HP PRN #1 [id number] PRN Reason: Prednisone [Deltasone 20 mg Tablet] 3 tab PO DAILY 5 Days #15 tablet Forms: Return to Work Referrals: LOYD RIOS PA [NO LOCAL MD] - Follow up as needed
[2020-04-03] MEDS ORDERED: IPRATROPIUM/ALBUTEROL 0.5-2.5 MG/3 ML AMPUL NEB ONE (09:41)
--- NOTE | 2020-04-03 09:49 | RADIOLOGY REPORT (SQ) ---
EXAM DESCRIPTION: CHEST SINGLE VIEW IMAGES COMPLETED DATE/TIME: 04/03/2020 9:26 am REASON FOR STUDY: cough COMPARISON: 08/17/2017 NUMBER OF VIEWS: One view. TECHNIQUE: Single frontal radiographic view of the chest acquired. LIMITATIONS: None. FINDINGS: LUNGS AND PLEURA: No opacities, masses or pneumothorax. No pleural effusion. MEDIASTINUM AND HILAR STRUCTURES: No masses. Contour normal. HEART AND VASCULAR STRUCTURES: Heart normal in size. Normal vasculature. BONES: No acute findings. HARDWARE: None in the chest. OTHER: No other significant finding. IMPRESSION: NO SIGNIFICANT RADIOGRAPHIC FINDING IN THE CHEST. TECHNICAL DOCUMENTATION: JOB ID: [id number] 2010 [employer]- All Rights Reserved Reading location - IP/workstation name: [email or web address]
[2020-04-03 09:55] LABS: A TYPE INFLUENZA AG NEGATIVE (NEGATIVE); B INFLUENZA AG NEGATIVE (NEGATIVE)
[2020-04-03 10:52] VITALS: BP 142/86
== END 2020-04-03 10:52 | disposition home or self-care (01) ==
LOC: ER 08:22
DX: R05 Cough (principal); J02.9 Acute pharyngitis, unspecified; R06.2 Wheezing; I10 Essential (primary) hypertension; F17.200 Nicotine dependence, unspecified, uncomplicated; Z91.018 Allergy to other foods; Z20.828 Contact with and (suspected) exposure to other viral communicable diseases
CPT/HCPCS: 94640; 99284; 87070; 87880; 87635; 87804; 71045; C9803